=== PATIENT | female | born 1935 | race Caucasian/White ===

== ENCOUNTER 2019-05-23 13:42 | Observation (INO) ==
[2019-05-23 14:45] LABS: BASO# 0.02 X1000 (0.0-0.2); BASO% 0.5 % (0.0-0.8); EOS# 0.03 X1000 (0.0-0.7); EOS% 0.7 % (0.0-10.0); HEMATOCRIT 24.4 % (37.0-47.0); HEMOGLOBIN 7.9 g/dL (12.0-16.0); IMM GRAN# 0.01 X1000 (0.0-0.04); IMM GRAN% 0.2 % (0.0-0.5); LYMPH# 1.28 X1000 (1.2-3.4); LYMPH% 30.7 % (20.5-51.1); MCH 40.3 PG (27-31); MCHC 32.4 g/dL (33-37); MCV 124.5 FL (81-99); MONO# 0.34 X1000 (0.11-0.59); MONO% 8.2 % (1.7-9.3); MPV 9.8 FL (7.4-10.4); NEUT# 2.49 X1000 (1.4-6.5); NEUT% 59.7 % (42.2-75.2); PLT 210 X1000 (130-400); RBC 1.96 XMIL (4.2-5.4); RDW 17.1 % (11.5-14.5); WBC 4.17 X1000 (4.8-10.8)
[2019-05-23 15:15] LABS: AGAP 8; ALBUMIN 3.3 g/dL (3.5-5.0); ALKALINE PHOSPHATASE 58 U/L (32-104); BUN 12 mg/dL (8-22); CALCIUM 7.8 mg/dL (8.8-10.2); CHLORIDE 105 mmol/L (98-107); COSMO 281; CREATININE 0.5 mg/dL (0.5-0.9); ESTIMATED GFR > 60; GLUCOSE 128 mg/dL (70-104); GOT 15 U/L (10-30); GPT 18 U/L (10-36); POTASSIUM 3.8 mmol/L (3.5-5.1); SODIUM 140 mmol/L (136-145); TCO2 27 mmol/L (25-35); TOTAL PROTEIN 5.7 g/dL (6.3-8.3)
--- NOTE | 2019-05-23 15:16 | Diag Imaging Result Doc PS360 ---
EXAM: CHEST-PORTABLE - 05/23/2019 HISTORY: cough TECHNIQUE: Portable chest COMPARISON: 03/18/2011 FINDINGS: Allowing for the AP projection, heart size appears within normal limits. Inspiration is mildly shallow, with subsegmental atelectasis at the bilateral lung bases. There is apical scarring similar to prior, most prominent on the right. There are left lower lung calcified granulomas from old granulomatous disease. There is no dense consolidation, vascular congestion, pleural effusion, or pneumothorax identified. There is a right internal jugular central venous catheter with its tip at the right atrium. IMPRESSION: Mildly shallow inspiration, with subsegmental atelectasis at the bilateral lung bases. Apical scarring, most prominent on the right. No discrete pneumonia. Electronically signed by Adonis Merrill 05/23/2019 3:13 PM
[2019-05-23] MEDS ORDERED: NS 1,000 ML IV ONE (16:22)
[2019-05-23] MEDS ORDERED: ROCEPHIN IV ONE (16:24)
[2019-05-23] MEDS ORDERED: TYLENOL PO PRN (17:48)
[2019-05-23] MEDS ORDERED: ZOFRAN IV PRN (17:48)
[2019-05-23] MEDS ORDERED: NS 1,000 ML ONE (18:34)
[2019-05-23] MEDS: ZOSYN 3.375 GM in NS 50 ML IV SCH ×2 (18:55→23:52)
--- NOTE | 2019-05-23 19:46 | HISTORY AND PHYSICAL ---
CHIEF COMPLAINT: Cough, urinary infection. HISTORY OF PRESENT ILLNESS: Patient is an 83-year-old female who is essentially nonverbal. The entire history is per her daughter. The daughter notes that Ms. Heck may have some mild dementia. Notes that over the weekend, she started having a cough, congestion. She attempted to check her O2 saturation and noted that it was low, but then notes that it did not read well and her hands were cold. States that she had some confusion, hallucinations over the weekend which is unusual for her. Stated that it continued to worsen. She was able to contact Dr. Slater's office on Wednesday and felt to have a UTI. The urine was sent for culture. She was placed on Macrobid. Unfortunately, she continued to worsen. The home health nurse checked on her today and thought she may have crackles in her lungs, and therefore had asked that she go to the ER. ALLERGIES: Adhesive dyes and lidocaine. MEDICATIONS: We do not have an accurate up-to-date medication list. We will address this once the list is available. REVIEW OF SYSTEMS: Obtained from the daughter. Denies any fevers or chills. States that she does have frequent UTIs and sometimes becomes generally weak and confused with these UTIs. Notes that she does have some confusion at baseline. Denies any chest pains, shortness of breath, dyspnea on exertion. Denies any GI issues. Denies any swelling in her lower extremities. PAST MEDICAL HISTORY: Positive for leukemia. Does have a history of anemia, although the daughter notes that her most recent hemoglobin and hematocrit had been checked recently and were 9 and 10. FAMILY HISTORY: Noncontributory. SOCIAL HISTORY: She lives at home. She is cared for by a caregiver and her daughter. She does not smoke or drink. PHYSICAL EXAMINATION: VITAL SIGNS: Reviewed. Temperature 98 degrees, pulse 82, respiratory rate 16, BP 169/73. GENERAL: Patient is in no current respiratory distress. She is chronically frail in appearance. HEENT: Normocephalic. NECK: Supple. CARDIOVASCULAR: Regular rate. No murmurs. CHEST: Clear. No crackles. No wheezing. No rubs. Decreased breath sounds, but appears equal bilaterally. ABDOMEN: Soft, nondistended. EXTREMITIES: Moves all extremities. She has no edema. NEUROLOGIC: Unable to fully assess. The patient does not follow commands and does not speak for herself. ASSESSMENT: 1. Urinary tract infection. We will place her on antibiotics and we will await culture. We will attempt to get results from Dr. Slater's office tomorrow as his culture hopefully will be back tomorrow. 2. Anemia. Hemoglobin and hematocrit are 7.9 and 24. We will not transfuse her at the current time. However, if this continues to drop, we certainly may require a transfusion. 3. Dementia. 4. Hypertension. 5. Others. PLAN: As noted, we will place her on intravenous fluids, antibiotics. Will follow. Recheck her labs in the a.m. if her hemoglobin and hematocrit drop, probably we will transfuse. Will adjust her antibiotics according to culture results when they are available, and will adjust her home medications once available. cc: Miguel Wisodm MD
[2019-05-23] MEDS: LEVAQUIN 500 MG/D5W 500 MG/100 ML IVPB IV SCH (20:50)
[2019-05-24] MEDS: ZOSYN 3.375 GM in NS 50 ML IV SCH ×4 (05:20→23:39)
[2019-05-24 06:10] LABS: HEMATOCRIT 24.3 % (37.0-47.0); HEMOGLOBIN 7.8 g/dL (12.0-16.0); MCH 39.8 PG (27-31); MCHC 32.1 g/dL (33-37); MPV 9.9 FL (7.4-10.4); RBC 1.96 XMIL (4.2-5.4); RDW 16.8 % (11.5-14.5); WBC 4.66 X1000 (4.8-10.8)
[2019-05-24 06:13] LABS: BILIRUBIN URINE NEGATIVE (NEGATIVE); BLOOD URINE 1+ (NEGATIVE); GLUCOSE URINE NEGATIVE (NEGATIVE); KETONE URINE TRACE mg/dL (NEGATIVE); LEUKOCYTES URINE 1+ (NEGATIVE); NITRITE URINE NEGATIVE (NEGATIVE); PROTEIN URINE NEGATIVE (NEGATIVE); URINE SOURCE CATH; UROBILINOGEN URINE NORMAL
[2019-05-24 06:14] LABS: CLARITY CLEAR (CLEAR); COLOR YELLOW
[2019-05-24 06:25] LABS: AGAP 8; ALKALINE PHOSPHATASE 57 U/L (32-104); BUN 8 mg/dL (8-22); CALCIUM 7.6 mg/dL (8.8-10.2); CHLORIDE 108 mmol/L (98-107); COSMO 283; CREATININE 0.6 mg/dL (0.5-0.9); ESTIMATED GFR > 60; GLUCOSE 101 mg/dL (70-104); GOT 13 U/L (10-30); GPT 16 U/L (10-36); MAGNESIUM 1.9 mg/dL (1.5-2.7); POTASSIUM 3.5 mmol/L (3.5-5.1); SODIUM 143 mmol/L (136-145); TCO2 27 mmol/L (25-35); TOTAL PROTEIN 5.2 g/dL (6.3-8.3)
[2019-05-24 06:46] LABS: URINE BACTERIA 2+ /HFP; URINE CAST GRANULAR PRESENT /LPF; URINE EPITHELIAL CELLS <10 /HPF (<10)
--- NOTE | 2019-05-24 09:59 | PROVIDER DOCUMENTATION ---
This chart was entered by Annie Krause Scribe, acting as scribe for Oma Maier MD. HPI-General Adult - General Chief Complaint: Cough Stated Complaint: SOB Time Seen by Provider: 05/23/19 13:53 Source: patient, family Allergies/Adverse Reactions: Patient Allergies Allergy/AdvReac Type Severity Reaction Status Date / Time adhesive Allergy Intermediate RASH Verified 02/05/16 13:03 lidocaine [From Lidoderm] Allergy HIVES Verified 02/05/16 13:03 terbinafine HCl * Allergy ITCHING Verified 02/05/16 13:03 [From Lamisil] Home Medications: Home Medication List Medication Instructions Recorded Confirmed Last Taken Type Prednisone 5 mg PO BID 07/07/12 05/23/19 05/23/19 History Folic Acid 1 mg PO DAILY 10/09/12 05/23/19 05/23/19 History Methotrexate 5 mg PO DIRECTED 03/15/13 05/23/19 05/17/19 07:00 History Cetirizine HCl [Zyrtec] 10 mg PO QHS 05/23/19 05/23/19 Unknown History Cyanocobalamin (Vitamin B-12) 1,250 mcg PO DAILY 05/23/19 05/23/19 Unknown History [Vitamin B12] Docusate Sodium 100 mg PO BID 05/23/19 05/23/19 05/23/19 History Dronabinol [Marinol] 5 mg PO BID 05/23/19 05/23/19 05/23/19 History Hydrocodone/Chlorphen Polis 5 ml PO PRN PRN 05/23/19 05/23/19 Unknown History [Tussionex Liquid] Mv-Mn/Iron/FA/Herbal Cmplx#190 50 mcg PO DAILY 05/23/19 05/23/19 05/23/19 History [Vitamin D3 Complete Caplet] Nitrofurantoin Monohyd/M-Cryst 100 mg PO BID 05/23/19 05/23/19 05/23/19 History [Macrobid 100 mg Capsule] Sennosides/Docusate Sodium [Senna 1 ea PO PRN PRN 05/23/19 05/23/19 Unknown History Laxative Tablet] Tramadol HCl 50 mg PO QHS 05/23/19 05/23/19 05/22/19 History Tramadol [Ultram] 100 mg PO DAILY 05/23/19 05/23/19 05/23/19 History Venlafaxine HCl [Venlafaxine HCl 37.5 mg PO QHS 05/23/19 05/23/19 05/22/19 History ER] - History of Present Illness -Gen Adult Nature of Presenting Problems: 83 yowf presents to the ed with family. pt family speaks for pt and pt is nonverbal on exam. pt family sts pcp ran urine yesterday and pt has "significant UTI" and is on abx now. family has noted weakness and confusion more then baseline and sts home health came out this morning and was concerned of "fluid in her lungs" so pt was brought to ed. pt is nontoxic in appearance on exam Location of Pain/Injury: reports: generalized (weakness) Quality of Pain: reports: other (weakness) Severity: reports: mild Onset/Duration: reports: gradual Timing: reports: still present Context/Activities at Onset: reports: light activity Modifying Factors: improves with: nothing Associated Symptoms: reports: genitourinary problems (UTI but sts has had no sx) , weakness, trouble walking. denies: back/neck pain, chest pain, diarrhea, fever/chills, nausea, vomiting Similar Symptoms Previously?: Yes (UTI) Recently seen or treated by another doctor?: No (had urine sent yesterday to pcp) Review of Systems - Adult - REVIEW OF SYSTEMS - ADULT ROS:: ROS per family Constitutional: denies: chills, fever Eyes: reports: no symptoms reported Ears, Nose, Mouth & Throat: reports: no symptoms reported Cardiovascular: denies: chest pain, palpitations Respiratory: denies: shortness of breath, wheezing Gastrointestinal: denies: abdominal pain, diarrhea, nausea, vomiting Genitourinary: reports: see HPI, frequent UTI's Musculoskeletal: reports: see HPI, other (generalized weakness) Integumentary: reports: no symptoms reported Neurological: reports: see HPI, other (confusion). denies: dizziness/vertigo, headache/migraines, slurred speech, syncope, tremors Psychiatric: reports: no symptoms reported Endocrine: reports: no symptoms reported Hematologic/Lymphatic: reports: no symptoms reported Allergic/Immunologic: reports: no symptoms reported All Other Systems: Reviewed and Negative Past History - Adult - PAST MEDICAL HISTORY-ADULT Review of Records: reports: Old Records Reviewed, Nursing Assessment Review, Medications Reviewed, Social history reviewed & non-contributory. Major Childhood Illnesses: reports: denies history Cardiovascular: reports: denies history Respiratory: reports: denies history Gastrointestinal: reports: denies history Obstetrical/Gynecological: reports: denies history Genitourinary: reports: denies history Musculoskeletal: reports: denies history Hand Dominance: Right Handed Neurological: reports: denies history Psychiatric: reports: denies history Endocrine/Immune: reports: denies history Other Conditions: reports: other cancer (leukemia) - PRIOR SURGERIES/PROCEDURES Surgical/Procedure History: reports: reviewed, not pertinent - IMMUNIZATION STATUS Childhood Immunizations: See Nurse Assessment Flu Vaccine: See Nurse Assessment - FAMILY HISTORY Family History: reviewed, not pertinent - SOCIAL HISTORY Smoking: non-smoker Substance Use: none/never Living Situation: family Physical Exam-General - PHYSICAL EXAM-ADULT Initial Vital Signs Reviewed: Yes - CONSTITUTIONAL General Appearance: appears well, alert, no apparent distress - EYES Eyes: PERRL/EOMI, pink conjunctivae - HEAD, EARS, NOSE, MOUTH & THROAT HENMT: moist mucous membranes - NECK Neck: full range of motion, supple, normal inspection - RESPIRATORY Respiratory: chest non-tender, decreased breath sounds (on right). negative: crackles, rales, rhonchi, wheezing - CARDIOVASCULAR Cardiovascular: normal peripheral pulses, regular rate, rhythm - GASTROINTESTINAL (ABDOMEN) Abdominal Exam: normal bowel sounds, non tender, soft - GENITOURINARY Female Genitalia/Pelvic Exam: deferred Rectal Exam: deferred Hemoccult Exam: deferred - LYMPHATIC Lymphatic: no adenopathy - MUSCULOSKELETAL Back Exam: scoliosis Extremity: normal range of motion, no calf tenderness, normal capillary refill - SKIN Integumentary: normal color, normal turgor, warm/dry - PSYCHIATRIC Psych/Mental Status: other (pt does not speak on exam family speaks for her) Progress - PLAN OF CARE/RESULTS Progress/Plan/Lab Results: Vital Signs - 8 hr 05/23/19 13:45 Temperature 98 F Pulse Rate 82 Respiratory Rate 16 Blood Pressure 169/73 O2 Sat by Pulse Oximetry 95 Result Diagrams: 05/24/19 05:33 05/24/19 05:33 - REASSESSMENT Reassessment #1 Time Reassessed: 15:35 (pt is resting in bed) Status: unchanged - XRAY 1 XRAY: Bilateral XRAY Study: Chest Impression: See EMR Report (EXAM: CHEST-PORTABLE - 05/23/2019 HISTORY: cough TECHNIQUE: Portable chest COMPARISON: 03/18/2011 FINDINGS: Allowing for the AP projection, heart size appears within normal limits. Inspiration is mildly shallow, with subsegmental atelectasis at the bilateral lung bases. There is apical scarring similar to prior, most prominent on the right. There are left lower lung calcified granulomas from old granulomatous disease. There is no dense consolidation, vascular congestion, pleural effusion, or pneumothorax identified. There is a right internal jugular central venous catheter with its tip at the right atrium. IMPRESSION: Mildly shallow inspiration, with subsegmental atelectasis at the bilateral lung bases. Apical scarring, most prominent on the right. No discrete pneumonia. Electronically signed by Adonis Merrill 05/23/2019 3:13 PM 05/23/19 1513 Interpreting Physician: Adonis Merrill MD Dictated Date/Time: 05/23/19 1511 cc: Oma Maier MD; None,PCP) - CONSULTS/PCP/HOSPITALIST Notification #1 *Consult/PCP/Hospitalist*: hospitalist dr cardozo Consult Disposition: Admit Departure - Departure Date of Disposition Decision: 05/23/19 Time of Disposition Decision: 15:58 DIAGNOSIS: Generalized weakness UTI (urinary tract infection) Qualifiers: Urinary tract infection type: site unspecified Hematuria presence: with hematuria Qualified Code(s): N39.0 - Urinary tract infection, site not specified; R31.9 - Hematuria, unspecified Disposition: ADMITTED INPATIENT 09 Certified Medical Emergency: Emergent Condition: Stable - Critical Care Note This patient required my direct & personal management of CC.: No Attestation - Physician/ GLORIA Attestation Patient care was provided by Advanced Practice Provider:: No The physician spent face to face time with patient:: Yes Advanced Practice Provider documentation review:: Supervising physician onsite and consulted in the evaluation and care of this patient. The physician did have a face to face encounter with the patient. This chart was documented by the indicated scribe, (Annie Krause Scribe) and accurately reflects the services I performed and decisions made by me, Roma Maier i, MD, as attested by the provider's signature.
[2019-05-24] MEDS ORDERED: NS 1,000 ML ONE (15:01)
[2019-05-24] MEDS ORDERED: TUSSIONEX LIQUID PO PRN (17:30)
[2019-05-24] MEDS ORDERED: METHOTREXATE PO SCH (18:00)
--- NOTE | 2019-05-24 20:07 | PROGRESS NOTE ---
DATE: 05/24/2019 SUBJECTIVE: Patient's caregivers deny any new complaints. PHYSICAL EXAMINATION: Vital Signs: Reviewed. Temperature 97.6 degrees, pulse 77, respiratory rate 18, BP 152/70. General: Patient is awake, alert. She is in no current distress. HEENT: Normocephalic. Neck: Supple. Cardiovascular: Regular rate. No murmurs. Chest: Clear, nonlabored. Abdomen: Soft, nondistended. Extremities: Moves all extremities. ASSESSMENT: 1. Urinary tract infection. Culture is still pending. We were unable to obtain the final results from Dr. Slater's office. We will attempt to do this again in the a.m. 2. Anemia. Hemoglobin and hematocrit have remained stable at 7.9 and 24. 3. Dementia. 4. Hypertension. PLAN: We will continue patient in the hospital. Continue to follow. Once we get final culture results, we hopefully can discharge home. cc: Miguel Wisdom MD
[2019-05-24] MEDS ORDERED: MARINOL PO SCH (21:00)
[2019-05-24] MEDS ORDERED: MACROBID PO SCH (21:00)
[2019-05-24] MEDS ORDERED: EFFEXOR XR PO SCH (21:00)
[2019-05-24] MEDS ORDERED: ULTRAM PO SCH (21:00)
[2019-05-24] MEDS ORDERED: ZYRTEC PO SCH (21:00)
[2019-05-24] MEDS ORDERED: PREDNISONE PO SCH (21:00)
[2019-05-24] MEDS ORDERED: COLACE PO SCH (21:00)
[2019-05-24] MEDS: LEVAQUIN 500 MG/D5W 500 MG/100 ML IVPB IV SCH (21:52)
[2019-05-25 05:04] VITALS: BP 160/69
[2019-05-25] MEDS: ZOSYN 3.375 GM in NS 50 ML IV SCH (05:42)
[2019-05-25] MEDS ORDERED: TUSSIONEX LIQUID PO PRN (06:30)
[2019-05-25] MEDS ORDERED: FOLIC ACID PO SCH (09:00)
[2019-05-25] MEDS ORDERED: VITAMIN D PO SCH (09:00)
[2019-05-25] MEDS ORDERED: ULTRAM PO SCH (09:00)
[2019-05-25] MEDS ORDERED: VITAMIN B-12 PO SCH (09:00)
[2019-05-25] MEDS ORDERED: LEVAQUIN PO SCH (21:00)
--- NOTE | 2019-05-25 22:03 | DISCHARGE SUMMARY ---
ADMISSION DATE: 05/23/2019 DISCHARGE DATE: 05/25/2019 DIAGNOSES: 1. Urinary tract infection. 2. Anemia with hemoglobin and hematocrit stable at 7.9 and 24. 3. Dementia. 4. Hypertension. DIAGNOSTICS: Chest x-ray revealed mildly shallow inspiration with subsegmental atelectasis at the bilateral lung bases. No discrete pneumonia. MICROBIOLOGY: 1. Urine culture 05/24/2019 revealed no growth. 2. Urine culture 05/23/[address] Torres's office revealed mixed georgiana. HOSPITAL COURSE: Ms. Heck presented to the emergency room with cough and a urinary tract infection. Evidently, on Wednesday she contacted Dr. Torres's office due to her having intermittent confusion and hallucinations over the weekend, which was not common for her. They felt that she might have a UTI. They sent a urine for culture and placed her on Macrobid. As symptoms continued to worsen, she presented to the emergency room and was found to have crackles. She was admitted and received IV hydration as well as Rocephin and Zosyn for antibiotic coverage. Urine culture came back no growth from admission to the hospital. She was changed to Levaquin p.o. Urine culture from Dr. Torres's office from the came back on the more incubation required. It did result this morning at 8:30 with mixed georgiana. Caregivers are at the bedside. They state that she is back to her normal state with no new complaints. DISCHARGE VITAL SIGNS: Blood pressure is 160/60 with a heart rate of 80, respirations 16, temperature is 97.7 degrees with room air saturations 95%. DISCHARGE PHYSICAL EXAMINATION: Cardiovascular: Regular rate and rhythm. S1, S2 appreciated. Pulmonary: Breath sounds are clear with no increased work of breathing noted. Gastrointestinal: Abdomen is soft, nontender, nondistended with bowel sounds in all 4 quadrants. Neurologic: The patient is awake and alert. DISCHARGE MEDICATIONS: 1. Levaquin 500 mg p.o. daily x5 days. 2. Vitamin B12, 2500 mcg daily. 3. Ultram 100 mg p.o. daily. 4. Methotrexate as directed. 5. Folic acid 1 mg p.o. daily. 6. Marinol 5 mg p.o. b.i.d. 7. Docusate sodium 100 mg p.o. b.i.d. 8. Zyrtec 10 mg p.o. at bedtime. 9. Senna laxative 1 p.o. p.r.n. constipation. 10. Effexor 37.5 at bedtime. DISCHARGE INSTRUCTIONS: With Dr. Ted Greenwood. They need to schedule an appointment in the next 1 to 2 weeks. The patient is being discharged home in stable condition with family members. They have been instructed to call Dr. Greenwood to be seen sooner or return to the ER for any syncope, dizziness, chest pain, palpitations, shortness of breath, increased cough, fever, chills, temperature greater than 101; any nausea, vomiting, diarrhea, constipation; black or bloody vomitus or stools; any hematuria, dysuria, frequency, urgency; change in mental status or for any questions or concerns that they may have. Dictated by WILLI Malhotra for Miguel Wisdom MD cc: WILLI Malhotra MD [facility]
--- NOTE | 2019-05-26 02:52 | DISCHARGE SUMMARY ---
ADMISSION DATE: 05/23/2019 DISCHARGE DATE: 05/25/2019 ADDENDUM: Patient seen and examined by myself. Full note dictated and discussed with nurse practitioner. On discharge, the patient has anemia but her hemoglobin and hematocrit have remained stable at 7 and 24. Her urine culture thus far has been negative. She does feel better since starting Levaquin. Therefore, we will continue this for 5 days at home. She will follow up outpatient with her primary care. cc: Miguel Wisdom MD
== END 2019-05-25 10:45 | disposition home health service (06) ==
LOC: P.ED 13:42 → P.MEDSURG 13:42
PROVIDERS: ATTEND Family Medicine
CPT/HCPCS: 71010; 71045; 80053; 81001; 83735; 83880; 84443; 85025; 85027; 87088; A9270; J0696; J1956; J2543; J7030; J7506; J7512; J8610

== ENCOUNTER 2019-06-08 10:37 | Inpatient (IN) ==
[2019-06-08] MEDS ORDERED: ZOSYN 3.375 GM in NS 50 ML IV ONE (10:59)
[2019-06-08] MEDS ORDERED: NS 1,000 ML IV ONE (10:59)
[2019-06-08] MEDS ORDERED: NS 500 ML IV ONE (10:59)
[2019-06-08] MEDS ORDERED: VANCOMYCIN 1 GM/NS 1 GM/250 ML IVPB IV ONE (10:59)
[2019-06-08] MEDS ORDERED: NS 250 ML IV ONE (10:59)
[2019-06-08] MEDS ORDERED: OFIRMEV 1000 MG/ISOTONIC SOLN 1,000 MG/100 ML BOTTLE IV ONE (11:01)
[2019-06-08 11:36] LABS: ALLEN TEST YES; BE 9.4 mmoll (-3.0-3.0); BLOOD TYPE ARTERIAL; HCO3-(ACT) 32.3 mmoll (20.0-26.0); METHB 0.8 % (0.0-1.5); O2HB 96.6 % (95.0-99.0); PCO2(98.6) 31 mmHg (35-45); PO2(98.6) 174 mmHg (60-100); SAMPLE BLOOD; SAO2 99.4 % (95.0-100.0)
[2019-06-08 11:39] LABS: MODALITY CANNULA; pH(98.6) 7.61 (7.35-7.45)
[2019-06-08 11:51] LABS: URINE SOURCE CATH
[2019-06-08 12:00] LABS: BILIRUBIN URINE NEGATIVE (NEGATIVE); BLOOD URINE TRACE (NEGATIVE); COLOR YELLOW; GLUCOSE URINE NEGATIVE (NEGATIVE); KETONE URINE NEGATIVE (NEGATIVE); LEUKOCYTES URINE LARGE (NEGATIVE); NITRITE URINE NEGATIVE (NEGATIVE); PH URINE 6.5; PROTEIN URINE TRACE mg/dL (NEGATIVE); SP GRAVITY URINE 1.013; TURBIDITY URINE CLEAR (CLEAR); UROBILINOGEN URINE NORMAL (NORMAL)
[2019-06-08 12:02] LABS: UR EPITHELIAL CELLS <10 /HPF (<10); URINE BACTERIA NEGATIVE /HPF; URINE RBC <10 /HPF (<10); URINE WBC TNTC /HPF (<10)
[2019-06-08 12:05] LABS: INR 1.3; PROTIME 16.4 Seconds (11.0-16.0)
--- NOTE | 2019-06-08 12:13 | Diag Imaging Result Doc PS360 ---
EXAM: CHEST-1 VIEW HISTORY: fever, ams TECHNIQUE: Chest single view 05/23/2019 COMPARISON: None. FINDINGS: The lungs are well expanded. Heart is mildly prominent. No pulmonary edema. No pleural effusions identified. No change in the right sided portacatheter. No pneumothorax. Increased markings in the mid right lung may be scarring. Left granuloma. IMPRESSION: Stable chest Electronically signed by Davion Banks 06/08/2019 12:11 PM
[2019-06-08 12:15] LABS: BASO# 0.02 X1000 (0.0-0.2); BASO% 0.1 % (0.0-0.8); HEMATOCRIT 29.3 % (37.0-47.0); HEMOGLOBIN 9.9 g/dL (12.0-16.0); LYMPH# 1.55 X1000 (1.2-3.4); LYMPH% 11.6 % (20.5-51.1); MCH 35.9 PG (27-31); MCHC 33.8 g/dL (33-37); MCV 106.2 FL (81-99); MONO# 0.95 X1000 (0.11-0.59); MONO% 7.1 % (1.7-9.3); MPV 9.7 FL (7.4-10.4); NEUT# 10.85 X1000 (1.4-6.5); NEUT% 81.2 % (42.2-75.2); PLT 175 X1000 (130-400); RBC 2.76 XMIL (4.2-5.4); WBC 13.37 X1000 (4.8-10.8)
[2019-06-08 12:17] LABS: AGAP 8; ALB/GLOB RATIO 1.8; ALBUMIN 3.2 g/dL (3.5-5.0); ALKALINE PHOSPHATASE 54 U/L (32-104); BUN 11 mg/dL (8-22); CALCIUM 7.9 mg/dL (8.8-10.2); CHLORIDE 103 mmol/L (98-107); CK PROFILE 10 U/L (24-173); COSMO 282; CREATININE 0.5 mg/dL (0.5-0.9); ESTIMATED GFR > 60; GLUCOSE 124 mg/dL (70-104); GOT 15 U/L (10-30); GPT 29 U/L (10-36); MAGNESIUM 1.7 mg/dL (1.5-2.7); POTASSIUM 2.8 mmol/L (3.5-5.1); SODIUM 141 mmol/L (136-145); TCO2 30 mmol/L (25-35); TOTAL BILIRUBIN 0.81 mg/dL (0.20-1.00)
[2019-06-08 12:22] LABS: BANDS 2 % (0-1); LYMPHS 14 % (21-51); MONO 8 % (1-9); SEGS 76 % (42-75)
--- NOTE | 2019-06-08 13:03 | PROVIDER DOCUMENTATION ---
This chart was entered by Mercy Avendano Scribe, acting as scribe for Jerry Lomax MD. HPI-Fever - General Chief Complaint: SEPSIS ALERT - D Stated Complaint: n/v/d Time Seen by Provider: 06/08/19 10:55 Source: patient, family, EMS Allergies/Adverse Reactions: Patient Allergies Allergy/AdvReac Type Severity Reaction Status Date / Time adhesive Allergy Intermediate RASH Verified 06/08/19 12:02 lidocaine [From Lidoderm] Allergy HIVES Verified 06/08/19 12:02 terbinafine HCl * Allergy ITCHING Verified 06/08/19 12:02 [From Lamisil] Home Medications: Home Medication List Medication Instructions Recorded Confirmed Last Taken Type Prednisone 5 mg PO BID 07/07/12 06/06/19 05/23/19 History Folic Acid 1 mg PO DAILY 10/09/12 06/06/19 05/23/19 History Cetirizine HCl [Zyrtec] 10 mg PO QHS 05/23/19 06/06/19 Unknown History Cyanocobalamin (Vitamin B-12) 1,250 mcg PO DAILY 05/23/19 06/06/19 Unknown History [Vitamin B12] Docusate Sodium 100 mg PO BID 05/23/19 06/06/19 05/23/19 History Dronabinol [Marinol] 5 mg PO BID 05/23/19 06/06/19 05/23/19 History Hydrocodone/Chlorphen Polis 5 ml PO PRN PRN 05/23/19 06/06/19 Unknown History [Tussionex Liquid] Mv-Mn/Iron/FA/Herbal Cmplx#190 50 mcg PO DAILY 05/23/19 06/06/19 05/23/19 History [Vitamin D3 Complete Caplet] Sennosides/Docusate Sodium [Senna 1 ea PO PRN PRN 05/23/19 06/06/19 Unknown History Laxative Tablet] Tramadol HCl 50 mg PO QHS 05/23/19 06/06/19 05/22/19 History Tramadol [Ultram] 100 mg PO DAILY 05/23/19 06/06/19 05/23/19 History Venlafaxine HCl [Venlafaxine HCl 37.5 mg PO QHS 05/23/19 06/06/19 05/22/19 History ER] Fluconazole [Diflucan] 150 mg PO DIRECTED 06/06/19 06/06/19 Unknown History - History of Present Illness-Fever Nature of Presenting Problem: 83 y/o female presents to ED with N/V/D, AMS, and fever onset this morning. Pt has hx leukemia and sees Dr. Torres. Daughter of pt is at bedside and reports she was admitted at [facility] 2 weeks ago for UTI and completed 2 rounds of antibiotics. Pt was admitted again 2 days ago and had a blood transfusion before being discharged yesterday afternoon. Daughter states she had a temp of 102 at home. Pt was put on home O2 last week. Daughter reports pt is not as alert and she normally is today. Pt denies any pain. Fever Severity/Quality: reports: greater than 100.5 F Onset/Duration: reports: this morning Timing: reports: still present Severity: reports: moderate Context: reports: decreased mental status Recent Illness?: reports: UTI Fever Therapy PAY PER CLICK STRATEGIST: Initiated none Cognitive Baseline: other (alert, answers questions, follows commands, lethargic) Modifying Factors: improves with: nothing Associated Symptoms: reports: diarrhea, fever/chills, nausea, vomiting, other (AMS) Similar Symptoms Previously?: No Recently seen or treated by another doctor?: Yes Review of Systems - Adult - REVIEW OF SYSTEMS - ADULT Constitutional: reports: fever, other (AMS). denies: chills Eyes: reports: no symptoms reported Ears, Nose, Mouth & Throat: reports: no symptoms reported Cardiovascular: denies: chest pain, palpitations Respiratory: denies: cough Gastrointestinal: reports: diarrhea, nausea, vomiting. denies: abdominal pain Genitourinary: reports: no symptoms reported Musculoskeletal: denies: back pain, joint pain Integumentary: reports: no symptoms reported Neurological: reports: other (AMS). denies: dizziness/vertigo, seizure Psychiatric: reports: no symptoms reported Endocrine: reports: no symptoms reported Hematologic/Lymphatic: reports: no symptoms reported Allergic/Immunologic: reports: no symptoms reported All Other Systems: Reviewed and Negative Past History - Adult - PAST MEDICAL HISTORY-ADULT Review of Records: reports: Old Records Reviewed, Nursing Assessment Review, Medications Reviewed Major Childhood Illnesses: reports: denies history Cardiovascular: reports: HTN Gastrointestinal: reports: GERD Neurological: reports: dementia Endocrine/Immune: reports: Leukemia - PRIOR SURGERIES/PROCEDURES Surgical/Procedure History: reports: hysterectomy - IMMUNIZATION STATUS Childhood Immunizations: See Nurse Assessment Flu Vaccine: See Nurse Assessment - FAMILY HISTORY Family History: reviewed, not pertinent - SOCIAL HISTORY Smoking: non-smoker Substance Use: none/never Alcohol Use Frequency: never Living Situation: family Physical Exam-General - PHYSICAL EXAM-ADULT Initial Vital Signs Reviewed: Yes - CONSTITUTIONAL General Appearance: alert, no apparent distress, other (alert, answers questions, follows commands, lethargic) - EYES Eyes: PERRL/EOMI, pink conjunctivae - HEAD, EARS, NOSE, MOUTH & THROAT HENMT: negative: moist mucous membranes (dry and chapped) - RESPIRATORY Respiratory: chest non-tender, lungs clear, normal breath sounds - CARDIOVASCULAR Cardiovascular: normal peripheral pulses, regular rate, rhythm - GASTROINTESTINAL (ABDOMEN) Abdominal Exam: non tender, soft, abnormal bowel sounds (hyperactive). negative: normal bowel sounds - MUSCULOSKELETAL Back Exam: normal inspection Extremity: normal range of motion - SKIN Integumentary: normal color, warm, other (port to R upper anterior chest) - NEUROLOGIC Neurologic: other (alert, answers questions, follows commands, lethargic) - PSYCHIATRIC Psych/Mental Status: normal mood/affect, other (alert, answers questions, follows commands, lethargic) Progress - PLAN OF CARE/RESULTS Progress/Plan/Lab Results: Vital Signs - 8 hr 06/08/19 10:43 Temperature 102.1 F H Pulse Rate 95 H Respiratory Rate 20 Blood Pressure 147/70 O2 Sat by Pulse Oximetry 90 L 06/08/19 11:15 Clostridioides difficile Toxin Assay - Final Stool 06/08/19 11:15 Stool Occult Blood (SILVIA) - Final Stool Laboratory Results - last 24 hr 06/08/19 06/08/19 06/08/19 11:18 11:25 11:28 WBC RBC Hgb Hct MCV MCH MCHC RDW Std Deviation Plt Count MPV Neut % (Auto) Lymph % (Auto) [place] % (Auto) Eos % (Auto) Baso % (Auto) Neut # (Auto) Lymph # (Auto) [place] # (Auto) Eos # (Auto) Baso # (Auto) Segmented Neutrophils Band Neutrophils Lymphocytes Monocytes PT INR PTT (Actin FS) Specimen Type ARTERIAL Sample Site L RADIAL pH 7.61 H* pCO2 31 L pO2 174 H HCO3 32.3 H Base Excess 9.4 H Oxyhemoglobin 96.6 ABG O2 Sat (Calculated) 14.0 L ABG O2 Saturation 99.4 ABG Carboxyhemoglobin 2.00 ABG Methemoglobin 0.8 Arian Test YES A-a O2 Difference -13.0 Total Hemoglobin 10.0 L Lactate 1.20 Liter Flow 2.0 Blood Gas Modality CANNULA FiO2 % 28.0 Sodium Potassium Chloride Carbon Dioxide Anion Gap BUN Creatinine Estimated GFR/1.73 m2 BUN/Creatinine Ratio Glucose Calculated Osmolality Calcium Magnesium Total Bilirubin AST ALT Alkaline Phosphatase Creatine Kinase Troponin T Total Protein Albumin Globulin Albumin/Globulin Ratio Plasma Lactate 1.0 Urine Source CATH Urine Color YELLOW Urine Turbidity CLEAR Urine pH 6.5 Ur Specific [place] 1.013 Urine Protein TRACE A Ur Glucose (Stick) NEGATIVE Ur Ketones (Stick) NEGATIVE Urine Blood TRACE A Urine Nitrite NEGATIVE Urine Bilirubin NEGATIVE Urobilinogen Dipstick NORMAL Urine Leukocytes LARGE A Urine WBC (Auto) TNTC A Urine RBC (Auto) <10 U Epithel Cells (Auto) <10 Urine Bacteria (Auto) NEGATIVE 06/08/19 06/08/19 06/08/19 11:37 11:37 11:37 WBC 13.37 H D RBC 2.76 L Hgb 9.9 L Hct 29.3 L MCV 106.2 H MCH 35.9 H MCHC 33.8 RDW Std Deviation Not Reportable Plt Count 175 MPV 9.7 Neut % (Auto) 81.2 H Lymph % (Auto) 11.6 L [place] % (Auto) 7.1 Eos % (Auto) 0.0 Baso % (Auto) 0.1 Neut # (Auto) 10.85 H Lymph # (Auto) 1.55 [place] # (Auto) 0.95 H Eos # (Auto) 0.00 Baso # (Auto) 0.02 Segmented Neutrophils 76 H Band Neutrophils 2 H Lymphocytes 14 L Monocytes 8 PT 16.4 H INR 1.30 PTT (Actin FS) 27.0 Specimen Type Sample Site pH pCO2 pO2 HCO3 Base Excess Oxyhemoglobin ABG O2 Sat (Calculated) ABG O2 Saturation ABG Carboxyhemoglobin ABG Methemoglobin Arian Test A-a O2 Difference Total Hemoglobin Lactate Liter Flow Blood Gas Modality FiO2 % Sodium 141 Potassium 2.8 L Chloride 103 Carbon Dioxide 30 Anion Gap 8 BUN 11 Creatinine 0.5 Estimated GFR/1.73 m2 > 60 BUN/Creatinine Ratio 22 Glucose 124 H Calculated Osmolality 282 Calcium 7.9 L Magnesium 1.7 Total Bilirubin 0.81 AST 15 ALT 29 Alkaline Phosphatase 54 Creatine Kinase 10 L Troponin T Total Protein 5.0 L Albumin 3.2 L Globulin 1.8 Albumin/Globulin Ratio 1.8 Plasma Lactate Urine Source Urine Color Urine Turbidity Urine pH Ur Specific [place] Urine Protein Ur Glucose (Stick) Ur Ketones (Stick) Urine Blood Urine Nitrite Urine Bilirubin Urobilinogen Dipstick Urine Leukocytes Urine WBC (Auto) Urine RBC (Auto) U Epithel Cells (Auto) Urine Bacteria (Auto) 06/08/19 11:37 WBC RBC Hgb Hct MCV MCH MCHC RDW Std Deviation Plt Count MPV Neut % (Auto) Lymph % (Auto) [place] % (Auto) Eos % (Auto) Baso % (Auto) Neut # (Auto) Lymph # (Auto) [place] # (Auto) Eos # (Auto) Baso # (Auto) Segmented Neutrophils Band Neutrophils Lymphocytes Monocytes PT INR PTT (Actin FS) Specimen Type Sample Site pH pCO2 pO2 HCO3 Base Excess Oxyhemoglobin ABG O2 Sat (Calculated) ABG O2 Saturation ABG Carboxyhemoglobin ABG Methemoglobin Arian Test A-a O2 Difference Total Hemoglobin Lactate Liter Flow Blood Gas Modality FiO2 % Sodium Potassium Chloride Carbon Dioxide Anion Gap BUN Creatinine Estimated GFR/1.73 m2 BUN/Creatinine Ratio Glucose Calculated Osmolality Calcium Magnesium Total Bilirubin AST ALT Alkaline Phosphatase Creatine Kinase Troponin T < 0.010 Total Protein Albumin Globulin Albumin/Globulin Ratio Plasma Lactate Urine Source Urine Color Urine Turbidity Urine pH Ur Specific [place] Urine Protein Ur Glucose (Stick) Ur Ketones (Stick) Urine Blood Urine Nitrite Urine Bilirubin Urobilinogen Dipstick Urine Leukocytes Urine WBC (Auto) Urine RBC (Auto) U Epithel Cells (Auto) Urine Bacteria (Auto) Orders Category Date Time Status Cardiac Monitoring DIRECTED Care 06/08/19 10:56 Active [facility] Insertion ORDERED Care 06/08/19 11:01 Active IV Insertion ORDERED Care 06/08/19 10:56 Completed Notify Physician As Ordered Care 06/08/19 10:56 Active OK to use Port-A-Cath ORDERED Care 06/08/19 11:02 Active CHEST-1 VIEW [RAD] Stat Exams 06/08/19 10:56 Completed ABG [RESP] Routine Lab 06/08/19 11:28 Completed BLOOD CULTURE [BLDCUL] Stat Lab 06/08/19 11:18 Results C DIFF TOXIN [STOOL] Stat Lab 06/08/19 11:15 Completed CBC WITH DIFF [HEME] Stat Lab 06/08/19 11:37 Completed CK PROFILE [SP CHEM] Stat Lab 06/08/19 11:37 Completed COMPREHENSIVE METABOLIC PANEL [CHEM] Stat Lab 06/08/19 11:37 Completed LACTATE, PLASMA [CHEM] Lab 06/08/19 11:18 Completed LACTATE, PLASMA [CHEM] Lab 06/08/19 14:00 Uncollected LACTATE, PLASMA [CHEM] Lab 06/08/19 17:00 Uncollected MAGNESIUM [CHEM] Stat Lab 06/08/19 11:37 Completed OCCULT BLOOD SCREENING [STOOL] Stat Lab 06/08/19 11:15 Completed PROTIME WITH INR [COAG] Stat Lab 06/08/19 11:37 Completed PTT [COAG] Stat Lab 06/08/19 11:37 Completed STOOL CULTURE [RM] Routine Lab 06/08/19 11:15 Received TROPONIN T Stat Lab 06/08/19 11:37 Completed URINALYSIS W/POSS RFLX CULT [URINALYSIS] Stat Lab 06/08/19 11:25 Completed URINE CULTURE [RM] Routine Lab 06/08/19 12:04 Received 0.9% Sodium Chloride Inj [Ns] 1,000 ml Med 06/08/19 10:59 Discontinued IV 999 mls/hr 0.9% Sodium Chloride Inj [Ns] 250 ml Med 06/08/19 10:59 Discontinued IV 999 mls/hr 0.9% Sodium Chloride Inj [Ns] 500 ml Med 06/08/19 10:59 Discontinued IV 999 mls/hr Acetaminophen [Ofirmev 1000 mg/Isotonic Soln] Med 06/08/19 11:01 Discontinued 1,000 mg in 100 ml IV ONCE Heparin Flush Med 06/08/19 11:33 Discontinued 500 unit .ROUTE .STK-MED ONE Heparin Flush Med 06/08/19 11:55 Discontinued 500 unit INJ NOW ONE Piperacillin/Tazobactam [Zosyn] 3.375 gm Med 06/08/19 10:59 Discontinued 0.9% Sodium Chloride Inj [Ns] 50 ml IV NOW Potassium Chloride 20 Meq/Swi Med 06/08/19 13:00 Active 20 meq in 100 ml IV Q4H Vancomycin 1 gm/Ns Med 06/08/19 10:59 Discontinued 1 gm in 250 ml IV NOW Oxygen Device Stat Oth 06/08/19 10:56 Completed Stool Occult Blood is negative. C. Diff is positive. Result Diagrams: 06/08/19 11:37 06/08/19 11:37 - REASSESSMENT Reassessment #1 Time Reassessed: 12:39 Status: improving (somewhat more alert after IVF bolus. Given IV acetaminophen for fever. Given IV Vanc/Zosyn for GI source of sepsis and UTI. Given IV KCl for hypokalemia. Placed in contact isolation for c. diff. Family informed of patient's diagnoses and home clean up tips.) Reassessment Comment: Patient has sepsis, not severe sepsis. - XRAY 1 XRAY Study: Chest Impression: See EMR Report ([facility] - [address] [facility] [place], [address], [place] [address] [facility] - [address] [place] [address] Department of Imaging Patient: [facility] Date: 06/08/19#: [id number] : 6ADM Status: [facility]#: [id number] Age/Sex: 83/FRoom/Bed: Loc: ED Ordering Physician: Jerry Lomax MD Family Physician: None,PCP Reason for Procedure: fever, ams ___ Signed EXAM: CHEST-1 VIEW HISTORY: fever, ams TECHNIQUE: Chest single view 05/23/2019 COMPARISON: None. FINDINGS: The lungs are well expanded. Heart is mildly prominent. No pulmonary edema. No pleural effusions identified. No change in the right sided portacatheter. No pneumothorax. Increased markings in the mid right lung may be scarring. Left granuloma. IMPRESSION: Stable chest Electronically signed by Davion Banks 06/08/2019 12:11 PM 06/08/19 1211 Interpreting Physician: Davion Banks MD Dictated Date/Time: 06/08/19 1210 cc: Jerry Lomax MD; None,PCP) - CONSULTS/PCP/HOSPITALIST Notification #1 *Consult/PCP/Hospitalist*: Hemant paged at 1230 Time Discussed: 13:18 (WILLI Nicole called, admit hospitalist) Consult Disposition: other #2 Consult: WILLI Stahl, hospitalist paged at 1318 Time Discussed: 13:22 Consult Disposition: Will see in ED, Admit (Desai) Departure - Departure Date of Disposition Decision: 06/08/19 Time of Disposition Decision: 12:41 DIAGNOSIS: C. difficile enteritis, Complicated UTI (urinary tract infection), Acute hypokalemia Sepsis Qualifiers: Sepsis type: sepsis due to unspecified organism Sepsis acute organ dysfunction status: with acute organ dysfunction Severe sepsis acute organ dysfunction type: encephalopathy Severe sepsis shock status: without septic shock Qualified Code(s): A41.9 - Sepsis, unspecified organism; R65.20 - Severe sepsis without septic shock; G93.40 - Encephalopathy, unspecified Anemia Qualifiers: Anemia type: other cause Other causes of anemia: chronic disease, neoplastic Qualified Code(s): D63.0 - Anemia in neoplastic disease Disposition: ADMITTED INPATIENT 09 Certified Medical Emergency: Emergent Condition: Poor Referrals and Follow-Ups: None,PCP [Primary Care Provider] - - Critical Care Note This patient required my direct & personal management of CC.: Yes Total Time (mins): 40 Critical Care Statement: This patient required my direct personal management to treat or rule out processes, the absence of which, could potentiallly result in sudden, clinically significant life or limb threatening deterioration. Attestation - Physician/ GLORIA Attestation Patient care was provided by Advanced Practice Provider:: No The physician spent face to face time with patient:: Yes Advanced Practice Provider documentation review:: Supervising physician onsite and consulted in the evaluation and care of this patient. The physician did have a face to face encounter with the patient. This chart was documented by the indicated scribe, (Mercy Avendano Scribe) and accurately reflects the services I performed and decisions made by me, Jerry Lomax MD, as attested by the provider's signature.
[2019-06-08] MEDS: POTASSIUM CHLORIDE 20 MEQ/SWI 20 MEQ/100 ML IVPB IV SCH ×2 (13:17→17:56)
[2019-06-08] MEDS ORDERED: ZOFRAN IV PRN (13:35)
[2019-06-08] MEDS ORDERED: NS 1,000 ML IV SCH ×2 (14:45→19:30)
[2019-06-08] MEDS: VANCOCIN PO SCH ×2 (14:48→21:19)
[2019-06-08] MEDS: CULTURELLE PO SCH ×2 (14:48→21:18)
[2019-06-08] MEDS: DIFLUCAN 100 MG/NS 100 MG/50 ML IVPB IV SCH (16:14)
[2019-06-08] MEDS ORDERED: NS 250 ML ONE (16:18)
--- NOTE | 2019-06-08 17:56 | HISTORY AND PHYSICAL ---
CHIEF COMPLAINT: Generalized weakness, nausea, vomiting, diarrhea. HISTORY OF PRESENT ILLNESS: This is an 83-year-old female with a history of CLL, chronic anemia, who presents to the emergency room with her daughter, complaining of vomiting and diarrhea that started this morning. Shortly after symptoms started, she was found to have a temperature of 102 degrees. The daughter states the patient was admitted for a 23-hour observation from the to , being discharged on the in the morning. She did state that the patient ate well for breakfast and lunch, although her tip tester stated that she did not eat well last night for supper, but she had no specific complaints. She was found to be Clostridium difficile toxin positive in the emergency room. She is being admitted for further evaluation and treatment. Ms. Heck was hospitalized at [facility] from May 23 to May 25 for altered mental status and a presumed urinary tract infection. She had had a culture obtained at Dr. Torres's office on the . Culture was also sent on the . Both of these returned no growth, but in talking with the daughter, the patient had had antibiotics prior to this and been told that she had a urinary tract infection. Because cultures were done with the patient already on antibiotics, we did send her home on 5 days of Levaquin. The daughter stated that her urinary tract symptoms cleared, and the patient stated that she was feeling better until this morning. PAST MEDICAL HISTORY: 1. CLL. 2. Anemia. SOCIAL HISTORY: She lives at home. She is cared for by her caregiver and her daughter. She does not smoke or drink. ALLERGIES: Adhesive, dyes, and lidocaine. HOME MEDICATIONS: A list will be obtained by the nursing staff, and once verified, we will review and restart as appropriate. REVIEW OF SYSTEMS: Discussed with the daughter as the patient is lethargic at present and she is sleeping. She has not complained of any syncope or dizziness, any chest pain, palpitations, shortness of breath, cough, any chills, any nausea, vomiting, diarrhea, or constipation prior to June 07, any hematuria, dysuria, frequency, urgency. PHYSICAL EXAMINATION: GENERAL: This is an 83-year-old female, who is lying on the stretcher in the emergency room, in no distress. VITAL SIGNS: Blood pressure is 140/74 with a heart rate of 93, respirations are 18, O2 saturation are 92% to 94% on room air, temperature was 102 degrees on arrival to the emergency room and has not been rechecked. HEENT: Head is normocephalic, atraumatic. Mucous membranes are dry. NECK: Supple with trachea midline. CARDIOVASCULAR: Regular rate and rhythm. S1 and S2 appreciated. She has no murmur. EXTREMITIES: No lower extremity edema with peripheral pulses palpable x4 extremities. PULMONARY: Breath sounds are clear. No increased work of breathing noted. Chest rises and falls symmetric to respiration. GASTROINTESTINAL: The abdomen is soft, nondistended, with bowel hyperactive bowel sounds in all 4 quadrants. SKIN: Warm and dry. DIAGNOSTIC STUDIES: WBC 13, hemoglobin 9.9, hematocrit 29.3, and platelets 175,000. Sodium 141, potassium 2.8, BUN 11, creatinine 0.5, glucose 124. Urinalysis reveals large leukocytes with too- [id number] white blood cells, she is nitrite negative. Blood cultures, urine culture, and stool culture pending. Stool for occult blood is negative. Stool for C. difficile toxin is positive. Chest x-ray was stable chest. Lungs are well expanded. Heart is mildly prominent. No pulmonary edema. No pleural effusions. No change in right-sided Port-A-Cath. No pneumothorax. Increased markings in the right lung may be scarring. ASSESSMENT AND PLAN: 1. Clostridium difficile toxin. 2. Nausea, vomiting, and diarrhea secondary to above. 3. Hypokalemia. 4. Leukocytosis. 5. Possible urinary tract infection. 6. Chronic lymphocytic leukemia. 7. Chronic anemia. 8. Deep vein thrombosis and gastrointestinal prophylaxes. PLAN: The patient will be admitted to the medical floor. She will be placed in a private room on C. difficile isolation. We will continue with IV hydration. Start vancomycin 250 mg p.o. q.6 h. for C. difficile. We will identify her home medications and continue these as appropriate. We will check a CBC, CMP, magnesium in the morning. She was given 2 L of fluid in the emergency room. We will continue saline 125 an hour. The patient has been getting Diflucan 1 pill a week for 4 weeks for yeast in her groin folds, as well as the daughter reported yeast in her urine. We will start fluconazole 100 mg IV q.24 h., and we will follow. For DVT prophylaxis, we will use SCDs, holding off on any anticoagulation as she is anemic and just received blood yesterday. For GI prophylaxis, Prilosec and we will start Culturelle. Further treatments pending hospital course. Assessment and plan was discussed with Dr. Desai. Patient seen and examined by me face to face, all the laboratory, vitals signs and images were reviewed, patient brought to the Emergency Department due to diarrhea, she looks dehydrated, C diff is positive, she will receive gently IV fluids, I am not sure if she has a history of CHF, we will start treatment with Vancomycin PO, we will correct electrolyte imbalance, she is having generalized tremors, I believe she has dementia, not answering my questions, a friend is at the bedside but has not all the information, her abdomen is a little bit distended with hyperactive bowel sounds, I agree with the rest of the [employer]'s assessment and plan, Aramis Wall MD. Dictated by WILLI Malhotra for Aramis Guillaume MD cc: WILLI Malhotra MD [facility]
[2019-06-08 20:40] LABS: AGAP 11; BUN 9 mg/dL (8-22); CALCIUM 7.1 mg/dL (8.8-10.2); CHLORIDE 107 mmol/L (98-107); COSMO 285; CREATININE 0.5 mg/dL (0.5-0.9); ESTIMATED GFR > 60; GLUCOSE 125 mg/dL (70-104); POTASSIUM 3.1 mmol/L (3.5-5.1); SODIUM 143 mmol/L (136-145); TCO2 25 mmol/L (25-35)
[2019-06-08] MEDS: ULTRAM PO SCH (21:18)
[2019-06-08] MEDS: MARINOL PO SCH (21:20)
[2019-06-08] MEDS: PREDNISONE PO SCH (21:20)
[2019-06-08] MEDS ORDERED: TYLENOL PO PRN (22:57)
[2019-06-08] MEDS: POTASSIUM CHLORIDE 40 MEQ in NS 1,000 ML IV SCH (23:21)
[2019-06-09] MEDS: VANCOCIN PO SCH ×4 (03:44→20:44)
[2019-06-09] MEDS: EFFEXOR XR PO SCH ×2 (03:52→20:44)
[2019-06-09] MEDS: MARINOL PO SCH ×2 (08:38→20:44)
[2019-06-09] MEDS: ULTRAM PO SCH ×2 (08:38→20:45)
[2019-06-09] MEDS: PREDNISONE PO SCH ×2 (08:39→20:44)
[2019-06-09] MEDS: CULTURELLE PO SCH ×2 (08:39→20:44)
[2019-06-09 09:27] LABS: BASO% 0.1 % (0.0-0.8); HEMATOCRIT 26.1 % (37.0-47.0); HEMOGLOBIN 8.5 g/dL (12.0-16.0); IMM GRAN% 0.4 % (0.0-0.5); LYMPH# 2.33 X1000 (1.2-3.4); LYMPH% 21.8 % (20.5-51.1); MCHC 32.6 g/dL (33-37); MCV 107.4 FL (81-99); MONO% 5.4 % (1.7-9.3); MPV 10.1 FL (7.4-10.4); NEUT# 7.72 X1000 (1.4-6.5); NEUT% 72.3 % (42.2-75.2); PLT 158 X1000 (130-400); RBC 2.43 XMIL (4.2-5.4); WBC 10.68 X1000 (4.8-10.8)
[2019-06-09 09:28] LABS: BASO# 0.01 X1000 (0.0-0.2); IMM GRAN# 0.04 X1000 (0.0-0.04); MONO# 0.58 X1000 (0.11-0.59)
[2019-06-09 09:40] LABS: ESTIMATED GFR > 60
[2019-06-09 09:52] LABS: AGAP 8; ALB/GLOB RATIO 1.8; ALBUMIN 2.8 g/dL (3.5-5.0); ALKALINE PHOSPHATASE 48 U/L (32-104); BUN 8 mg/dL (8-22); CHLORIDE 109 mmol/L (98-107); COSMO 281; CREATININE 0.5 mg/dL (0.5-0.9); GLUCOSE 115 mg/dL (70-104); GOT 21 U/L (10-30); GPT 34 U/L (10-36); MAGNESIUM 1.6 mg/dL (1.5-2.7); SODIUM 141 mmol/L (136-145); TCO2 24 mmol/L (25-35); TOTAL BILIRUBIN 0.51 mg/dL (0.20-1.00); TOTAL PROTEIN 4.4 g/dL (6.3-8.3)
[2019-06-09] MEDS: POTASSIUM CHLORIDE 40 MEQ in NS 1,000 ML IV SCH ×2 (12:04→23:07)
--- NOTE | 2019-06-09 14:03 | PROGRESS NOTE ---
DATE: 06/09/2019 SUBJECTIVE: The patient seems to be doing better today compared with yesterday. She is still having bowel movements, diarrhea. She seems to be more awake, more oriented today. She is able to recognize family members at the bedside. For now, we will continue treating this patient and continue with IV fluids. She is getting potassium through her IV. OBJECTIVE: Vital Signs: Temperature 98.9 degrees, pulse 76, respiratory rate 16, blood pressure 127/49, oxygen saturation 100% on 2 L of nasal cannula. HEENT: Head normocephalic, no trauma. PERRLA. Neck: Supple. No JVD. Central trachea. Chest: Clear to auscultation. No wheezing. No rales. Abdomen: Soft. Bowel sounds hyperactive. Some tenderness to palpation at the level of the periumbilical area. Extremities: No edema, no clubbing, no cyanosis. Neurological examination: This patient is alert. She is awake. She is able to recognize family members at the bedside. She moves all 4 extremities spontaneously. She seems to have generalized weakness, which apparently is chronic. LABORATORY: WBC 10.6, hemoglobin 8.5, hematocrit 26.1, platelets 158. Sodium 141, potassium 3, chloride 109, bicarbonate 24. BUN 8, creatinine 0.5, glucose 115, calcium 7, albumin 2.8. ASSESSMENT AND PLAN: 1. Clostridium difficile colitis. This patient is still having diarrhea. We will continue with intravenous fluids with potassium. We will continue also with vancomycin oral. She seems to be doing better today. 2. Nausea, vomiting, likely secondary to #1. She seems to be better. She is hungry. Continue with the diet. 3. Hypokalemia. I will replace the potassium through the intravenous fluids. 4. Leukocytosis, resolved. 5. History of urinary tract infection. Urine culture has been negative so far. We will monitor this closely. 6. Chronic lymphocytic leukemia, stable. We will continue to monitor. Probably she needs to be seen by her parcel wrapper/oncologist as an outpatient. 7. Chronic anemia, aware, stable. 8. Deep vein thrombosis prophylaxis with sequential compression devices. 9. Hypoxemic respiratory failure which is chronic. She is on home oxygen. We will continue to monitor. cc: Aramis Guillaume MD
[2019-06-09] MEDS: DIFLUCAN 100 MG/NS 100 MG/50 ML IVPB IV SCH (14:48)
[2019-06-10] MEDS: VANCOCIN PO SCH ×4 (02:13→21:02)
[2019-06-10 07:18] LABS: HEMATOCRIT 25.5 % (37.0-47.0); HEMOGLOBIN 8.3 g/dL (12.0-16.0); MCH 35.5 PG (27-31); MCHC 32.5 g/dL (33-37); MPV 10.2 FL (7.4-10.4); PLT 145 X1000 (130-400); RBC 2.34 XMIL (4.2-5.4); WBC 5.95 X1000 (4.8-10.8)
[2019-06-10 07:19] LABS: BASO# 0.01 X1000 (0.0-0.2); BASO% 0.2 % (0.0-0.8); EOS# 0.02 X1000 (0.0-0.7); EOS% 0.3 % (0.0-10.0); IMM GRAN# 0.02 X1000 (0.0-0.04); IMM GRAN% 0.3 % (0.0-0.5); LYMPH# 1.79 X1000 (1.2-3.4); LYMPH% 30.1 % (20.5-51.1); MONO# 0.25 X1000 (0.11-0.59); MONO% 4.2 % (1.7-9.3); NEUT# 3.86 X1000 (1.4-6.5); NEUT% 64.9 % (42.2-75.2)
[2019-06-10 07:27] LABS: AGAP 8; BUN 6 mg/dL (8-22); CALCIUM 7.3 mg/dL (8.8-10.2); CHLORIDE 109 mmol/L (98-107); COSMO 277; CREATININE 0.4 mg/dL (0.5-0.9); ESTIMATED GFR > 60; GLUCOSE 100 mg/dL (70-104); MAGNESIUM 1.7 mg/dL (1.5-2.7); PHOSPHORUS 1.9 mg/dL (2.7-4.5); SODIUM 140 mmol/L (136-145); TCO2 23 mmol/L (25-35)
[2019-06-10] MEDS ORDERED: NORVASC PO ONE (09:06)
[2019-06-10] MEDS: CULTURELLE PO SCH ×2 (09:26→21:01)
[2019-06-10] MEDS: PREDNISONE PO SCH ×2 (09:26→21:02)
[2019-06-10] MEDS: ULTRAM PO SCH ×2 (09:27→21:01)
[2019-06-10] MEDS: MARINOL PO SCH ×2 (09:27→21:01)
[2019-06-10] MEDS ORDERED: POTASSIUM CHLORIDE 40 MEQ in NS 1,000 ML IV SCH (09:37)
--- NOTE | 2019-06-10 13:30 | PROGRESS NOTE ---
DATE: 06/10/2019 SUBJECTIVE: Patient seems to be doing better, but she is still having diarrhea, at least 4 episodes of watery bowel movements during the night. She seems to be really weak. Potassium level improved. Blood pressure a little bit elevated, and I will give her a low dose of amlodipine x1 to see how she does. Otherwise, vital signs are stable. She is anemic, but the occult blood in the stool is negative. OBJECTIVE: Vital Signs: Temperature 97.6 degrees, pulse 75, respiratory rate 14, blood pressure 183/68, oxygen saturation 100% on nasal cannula. HEENT: Head normocephalic, no trauma. PERRLA. Neck: Supple. No JVD. No masses. Central trachea. Chest: Clear to auscultation. No wheezing. No rales. Abdomen: Soft, but she has generalized tenderness to palpation, especially on the left side of the abdomen. No signs of peritoneal irritation. No rebound. Positive bowel sounds, actually hyperactive. Extremities: No edema, no clubbing, no cyanosis. Neurological: The patient is alert. She is awake. She is able to recognize family members at the bedside. She moves all 4 extremities spontaneously. She does have generalized weakness. LABORATORY: WBC 5.9, hemoglobin 8.3, hematocrit 25.5, platelets 145,000. Sodium 140, potassium 4, chloride 109, bicarbonate 23, BUN 6, creatinine 0.6, glucose 100, calcium 7.3. Magnesium 1.7. ASSESSMENT AND PLAN: 1. Clostridium difficile colitis. This patient is still having diarrhea, at least 4 episodes during the night. I will continue with IV fluids with potassium, but I will decrease the rate. I will advance her diet since she is tolerating liquid diet. I will avoid dairy products. We will continue with vancomycin per mouth. 2. Nausea and vomiting, likely due to #1. She seems to be better. 3. Hypokalemia, resolved. 4. Leukocytosis, resolved. 5. History of urinary tract infection. Urine culture has been negative so far. We will monitor this patient closely. 6. Chronic lymphocytic leukemia, stable. We will monitor. 7. Chronic anemia. Aware. Stable. 8. Deep vein thrombosis prophylaxis with sequential compression devices. 9. Hypoxemic respiratory failure, which is chronic. She is on home O2. We will continue to monitor. 10. Hypertension. I will give her a low dose of amlodipine to see how she does, but also she is getting fluids which I will decrease. 11. Generalized weakness and physical deconditioning. I have requested Physical Therapy and Occupational Therapy to evaluate this patient. cc: Aramis Guillaume MD
[2019-06-10] MEDS: EFFEXOR XR PO SCH (21:07)
[2019-06-11] MEDS: VANCOCIN PO SCH ×4 (02:40→21:41)
[2019-06-11 07:03] LABS: BASO# 0.01 X1000 (0.0-0.2); BASO% 0.2 % (0.0-0.8); EOS# 0.07 X1000 (0.0-0.7); EOS% 1.5 % (0.0-10.0); HEMATOCRIT 27.9 % (37.0-47.0); IMM GRAN# 0.02 X1000 (0.0-0.04); IMM GRAN% 0.4 % (0.0-0.5); LYMPH# 1.77 X1000 (1.2-3.4); MCH 34.9 PG (27-31); MCHC 32.3 g/dL (33-37); MCV 108.1 FL (81-99); MONO# 0.22 X1000 (0.11-0.59); MONO% 4.7 % (1.7-9.3); MPV 10.1 FL (7.4-10.4); NEUT# 2.57 X1000 (1.4-6.5); NEUT% 55.2 % (42.2-75.2); PLT 155 X1000 (130-400); RBC 2.58 XMIL (4.2-5.4); RDW 23.3 % (11.5-14.5); WBC 4.66 X1000 (4.8-10.8)
[2019-06-11 07:19] LABS: AGAP 6; BUN 8 mg/dL (8-22); CALCIUM 8.1 mg/dL (8.8-10.2); CHLORIDE 112 mmol/L (98-107); COSMO 286; CREATININE 0.5 mg/dL (0.5-0.9); ESTIMATED GFR > 60; GLUCOSE 110 mg/dL (70-104); MAGNESIUM 1.8 mg/dL (1.5-2.7); PHOSPHORUS 2.3 mg/dL (2.7-4.5); POTASSIUM 4.4 mmol/L (3.5-5.1); SODIUM 144 mmol/L (136-145); TCO2 26 mmol/L (25-35)
[2019-06-11] MEDS: CULTURELLE PO SCH ×2 (09:52→21:40)
[2019-06-11] MEDS: PREDNISONE PO SCH ×2 (09:52→21:40)
[2019-06-11] MEDS: ULTRAM PO SCH ×2 (09:52→21:40)
[2019-06-11] MEDS: MARINOL PO SCH ×2 (09:52→21:41)
--- NOTE | 2019-06-11 10:47 | PROGRESS NOTE ---
DATE: 06/11/2019 SUBJECTIVE: This patient seems to be doing better today. She is still having diarrhea. The abdominal pain is getting better. She is tolerating p.o. We will continue with the same management. Hopefully, in 1 or 2 days, I will discharge this patient home. OBJECTIVE: Vital Signs: Temperature 97.7 degrees, pulse 76, respiratory rate 16, blood pressure 158/64, oxygen saturation 100% on 2 L of nasal cannula. HEENT: Head normocephalic. No trauma. PERRLA. Neck: Supple. No JVD. No masses. Central trachea. Chest: Clear to auscultation. No wheezing. No rales. Abdomen: Soft. Generalized tenderness to palpation, especially on the left side of the abdomen. No signs of peritoneal irritation. No rebound. Positive bowel sounds but actually hyperactive. Extremities: No edema, no clubbing, no cyanosis. Neurological Examination: This patient is awake, alert. She is following commands. She recognized family members at the bedside. She is eating. Laboratory: WBC 4.6, hemoglobin 9, hematocrit 27.9, platelets 155,000. Sodium 144, potassium 4.4, chloride 112, bicarbonate 26, BUN 8, creatinine 0.5, glucose 110, calcium 8.1, magnesium 1.8. ASSESSMENT AND PLAN: 1. Clostridium difficile colitis. This patient is still having some diarrhea, 3 episodes of watery diarrhea during the night but I believe she is getting better. The abdomen looks less distended. The diet has been advanced and she is tolerating that. She seems to be more awake. Continue with the same management and fluids. 2. Nausea and vomiting, likely due to #1, resolved. 3. Hypokalemia, resolved. 4. Leukocytosis, resolved. 5. History of urinary tract infection. Urine culture has been negative so far. 6. Chronic lymphocytic leukemia, stable. We will monitor. 7. Chronic anemia. Aware. 8. Deep vein thrombosis prophylaxis with sequential compression devices. 9. Hypoxemic respiratory failure, which is chronic. She is on home oxygen. Continue with the same management. 10. Hypertension. Blood pressure seems to be more stable. I will just monitor. 11. Generalized weakness and physical deconditioning. Continue physical therapy and occupational therapy. 12. Overall, this patient is doing better. She is still having diarrhea and some abdominal pain. I feel that she needs to stay here at least 1 or 2 more days, and then she can go home, hopefully tomorrow. cc: Aramis Guillaume MD
[2019-06-11] MEDS: 1/2 NS 1,000 ML IV SCH (14:55)
[2019-06-11] MEDS: EFFEXOR XR PO SCH (21:39)
[2019-06-12] MEDS: VANCOCIN PO SCH ×4 (04:38→20:30)
[2019-06-12 07:44] LABS: AGAP 7; BUN 6 mg/dL (8-22); CHLORIDE 113 mmol/L (98-107); COSMO 278; CREATININE 0.4 mg/dL (0.5-0.9); ESTIMATED GFR > 60; GLUCOSE 88 mg/dL (70-104); PHOSPHORUS 2.7 mg/dL (2.7-4.5); POTASSIUM 3.1 mmol/L (3.5-5.1); SODIUM 141 mmol/L (136-145); TCO2 21 mmol/L (25-35)
[2019-06-12 07:53] LABS: CALCIUM 6.3 mg/dL (8.8-10.2)
[2019-06-12] MEDS ORDERED: KLOR-CON PO ONE (08:58)
[2019-06-12] MEDS ORDERED: CALCIUM GLUCONATE 4.65 MEQ in NS 50 ML IV ONE (08:59)
[2019-06-12] MEDS: MARINOL PO SCH ×2 (10:21→20:30)
[2019-06-12] MEDS: CULTURELLE PO SCH ×2 (10:21→20:31)
[2019-06-12] MEDS: PREDNISONE PO SCH ×2 (10:21→20:31)
[2019-06-12] MEDS: ULTRAM PO SCH ×2 (10:21→20:31)
--- NOTE | 2019-06-12 17:13 | PROGRESS NOTE ---
DATE: 06/12/2019 PRIMARY CARE PHYSICIAN: No primary care Physician. SUBJECTIVE: History of CLL, chronic anemia, presented to the emergency room with her daughter complaining of vomiting and diarrhea started that morning. Shortly after symptoms started, she was found to have a temperature of 102 degrees. Daughter states she was admitted for 23 hour observation from the to and was discharged on the in the morning. States that the patient ate well for breakfast and lunch, although her athletic equipment custodian says she did not eat well at night for supper. Found Clostridium difficile toxin positive in the emergency room and admitted. She seems to be slowly improving. She is still pretty weak and puny. Daughter was at the bedside. OBJECTIVE: Vital Signs: Temperature 97.9 degrees, pulse 75, respirations 16, blood pressure 142/76. HEENT: Pupils are equal and round. Lungs: Clear in all lung ugarte. Cardiovascular: Regular rate without murmur or S3. Abdomen: Soft. Skin is warm and dry. Urine output was 3000 mL. She said her stools are starting to form a little better. ASSESSMENT AND PLAN: 1. Clostridium difficile colitis. Stools are starting to form a little better. May start to get some physical therapy. Abdomen is less distended. She seems to be more awake and alert than the notes recorded before. 2. Nausea, vomiting, improved. 3. Hypokalemia, resolved. 4. Leukocytosis, resolved. 5. History of urinary tract infection or sediment. Cultures are negative. 6. Chronic lymphocytic leukemia. Aware. 7. Chronic anemia, aware. 8. Deep venous thrombosis with thrombosis prophylaxis. Continue sequential compression devices. 9. Hypoxemic respiratory failure which is chronic. She is on home oxygen. Good air and gas exchange at this time. 10. Hypertension. Blood pressure stable. 11. Generalized weakness and physical deconditioning. Continue physical therapy and occupational therapy. Overall, she seems to be improving. REVIEW OF ORDERS: She is getting vancomycin 125 mg p.o. q.6 hours. Getting Ultram 100 mg p.o. daily, Effexor ER 37.5 mg at bedtime, Ultram 50 mg at bedtime, lactobacillus rhamnosus 1 twice a day, Marinol 5 mg p.o. b.i.d., and then she got 1 dose of calcium gluconate. REVIEW OF LABS: Yesterday, white count 4660, hematocrit is 27, hemoglobin 9, platelet count a 155,000 sodium 141, potassium 3.1, chloride 113, BUN 6, creatinine 0.4. She is on a GI soft diet. cc: Arian Wilson MD
[2019-06-12] MEDS: EFFEXOR XR PO SCH (20:30)
[2019-06-12] MEDS: 1/2 NS 1,000 ML IV SCH (23:49)
[2019-06-13] MEDS: VANCOCIN PO SCH ×4 (02:24→20:36)
[2019-06-13 06:58] LABS: EOS# 0.02 X1000 (0.0-0.7); EOS% 0.5 % (0.0-10.0); HEMATOCRIT 26.4 % (37.0-47.0); HEMOGLOBIN 8.4 g/dL (12.0-16.0); IMM GRAN# 0.02 X1000 (0.0-0.04); IMM GRAN% 0.5 % (0.0-0.5); LYMPH# 1.83 X1000 (1.2-3.4); LYMPH% 46.1 % (20.5-51.1); MCH 34.4 PG (27-31); MCHC 31.8 g/dL (33-37); MCV 108.2 FL (81-99); MONO# 0.33 X1000 (0.11-0.59); MONO% 8.3 % (1.7-9.3); MPV 9.7 FL (7.4-10.4); NEUT# 1.77 X1000 (1.4-6.5); NEUT% 44.6 % (42.2-75.2); PLT 177 X1000 (130-400); RBC 2.44 XMIL (4.2-5.4); RDW 22.1 % (11.5-14.5); WBC 3.97 X1000 (4.8-10.8)
[2019-06-13 07:17] LABS: AGAP 6; BUN 8 mg/dL (8-22); CALCIUM 8.1 mg/dL (8.8-10.2); CHLORIDE 106 mmol/L (98-107); COSMO 280; CREATININE 0.4 mg/dL (0.5-0.9); ESTIMATED GFR > 60; GLUCOSE 99 mg/dL (70-104); POTASSIUM 3.9 mmol/L (3.5-5.1); SODIUM 141 mmol/L (136-145); TCO2 29 mmol/L (25-35)
[2019-06-13 07:27] LABS: LYMPHS 50 % (21-51); MONO 6 % (1-9); SEGS 44 % (42-75)
[2019-06-13 07:28] LABS: ANISOCYTOSIS 1+
[2019-06-13] MEDS: MARINOL PO SCH ×2 (08:31→20:36)
[2019-06-13] MEDS: CULTURELLE PO SCH ×2 (08:48→20:36)
[2019-06-13] MEDS: ULTRAM PO SCH ×2 (08:48→20:35)
[2019-06-13] MEDS: PREDNISONE PO SCH ×2 (08:49→20:35)
[2019-06-13] MEDS: 1/2 NS 1,000 ML IV SCH (13:43)
--- NOTE | 2019-06-13 14:15 | PROGRESS NOTE ---
DATE: 06/13/2019 SUBJECTIVE: Ms. Heck is still pretty weak. Daughter was a little concerned because she did not remember her name and some of the family's name, and is a little more confused this morning. OBJECTIVE: Vital Signs: Temperature 98.0 degrees, pulse 78, respirations 18, blood pressure 134/65. Eyes: Pupils are equal and round. Lungs: Clear in all lung ugarte. Cardiovascular exam: Regular rhythm and rate without murmur or S3. Abdomen: Soft. Skin: Warm and dry. : Urine output is 4200 mL. ASSESSMENT AND PLAN: 1. Clostridium difficile colitis and saw a little improvement. Bowels starting to form. Abdomen less distended and uncomfortable. 2. Nausea and vomiting, improved. 3. Hypokalemia, which has been supplemented, resolved. 4. Leukocytosis, resolved. 5. History of urinary tract infection. Cultures were negative. 6. Chronic lymphocytic leukemia. Aware. 7. Chronic anemia, aware. 8. Deep venous thrombosis. Continue thrombosis prophylaxis. 9. Hypoxemic respiratory failure which is chronic on home oxygen. Good air and gas exchange at this time. 10. Hypertension. Blood pressure controlled. 11. Generalized weakness and deconditioning. Continue physical therapy. REVIEW OF LABS: Her lab from today: White count 3970, hematocrit is 26, hemoglobin 8.4, platelet count 177,000. Sodium 141, potassium 3.9, chloride 106. BUN 8, creatinine 0.4. Her calcium was 8.1. She did request that Dr. Torres would be notified that she is here and see if he wanted to do any transfusions. Continue physical therapy. The plan is to take her home. Like to get her a little stronger where she can at least ambulate to the bedside commode. cc: Arian Wilson MD
[2019-06-13] MEDS: EFFEXOR XR PO SCH (20:36)
[2019-06-14] MEDS: VANCOCIN PO SCH ×4 (01:42→20:35)
[2019-06-14] MEDS: 1/2 NS 1,000 ML IV SCH (04:16)
[2019-06-14] MEDS: CULTURELLE PO SCH ×2 (09:28→20:35)
[2019-06-14] MEDS: PREDNISONE PO SCH ×2 (09:28→20:35)
[2019-06-14] MEDS: MARINOL PO SCH ×2 (09:33→20:36)
[2019-06-14] MEDS: ULTRAM PO SCH ×2 (09:33→20:36)
--- NOTE | 2019-06-14 13:02 | PROGRESS NOTE ---
DATE: 06/14/2019 SUBJECTIVE: Ms. Heck is feeling better and a little stronger. She was sitting up in a chair. OBJECTIVE: Vital Signs: She remains afebrile, temperature 97.5 degrees, pulse 78, respirations 18, blood pressure 162/61. HEENT: Pupils are equal and round. Lungs: Clear in all lung ugarte. Cardiovascular: Regular rhythm and rate without murmur or S3. Urine Output: 2300 mL. ASSESSMENT AND PLAN: 1. Clostridium difficile colitis, with improvement. She is stronger, doing better. 2. Nausea and vomiting, improved. 3. Hypokalemia. This has been supplemented and resolved. 4. Leukocytosis, resolved. 5. History of urinary tract infection, treated. Cultures were negative. 6. Chronic lymphocytic leukemia. 7. Chronic anemia. 8. Deep venous thrombosis prophylaxis . 9. Hypoxemic respiratory failure, which is chronic. She is on home oxygen. DISPOSITION: I think she will be ready go home tomorrow. We are going to discontinue her Johns catheter. Continue present orders. cc: Arian Wilson MD MTDD
[2019-06-14] MEDS: EFFEXOR XR PO SCH (20:36)
[2019-06-15] MEDS: VANCOCIN PO SCH ×4 (01:32→21:02)
--- NOTE | 2019-06-15 08:38 | HEMO/ONC CONSULTATION ---
DATE: 06/14/2019 ADMITTING PHYSICIAN: Dr. Aramis Desai. REQUESTING PHYSICIAN: Dr. Aramis Desai. We appreciate this consult. CHIEF COMPLAINT: Lymphocytic leukemia. HISTORY OF PRESENT ILLNESS: Ms. Clementine Heck is an 83-year-old female, well known to Dr. Torres with a history of T-cell large granular lymphocytic leukemia. She has been treated on methotrexate and prednisone, which have recently been on hold secondary to profound anemia. She did undergo CT scan on 06/06/2019, which revealed stable disease. The patient presented to [facility] Emergency Department complaining of nausea, vomiting, and diarrhea, with a fever to 102 degrees. The patient was admitted for 23-hour observation, and was found to have Clostridium difficile toxin positive in her blood work. She was admitted for treatment. We are consulted as the patient is well known to us. PAST MEDICAL HISTORY: 1. T-cell large granular lymphocytic leukemia. 2. Chronic anemia secondary to treatment from #1. 3. Chronic hypoxic respiratory failure, wearing O2 at home. 4. Hypertension. SOCIAL HISTORY: The patient does not use tobacco, alcohol, or illicit drugs. She is cared for by her caregiver and daughter. She lives at home. MEDICATIONS ON ADMISSION: 1. Zofran. 2. Culturelle. 3. Effexor. 4. Marinol. 5. Prednisone, which has been on hold. 6. Tylenol. 7. Methotrexate, which has been on hold. 8. Ultram. ALLERGIES: Adhesives, dyes, and lidocaine. REVIEW OF SYSTEMS: A 14-point review of systems was obtained and is negative, except for mentioned in the HPI. PHYSICAL EXAMINATION: General: Ms. Heck is a frail, 83-year-old female, lying supine in bed in no immediate distress. HEENT: Normocephalic, atraumatic. Mucous membranes are pale and moist. Sclerae anicteric. Extraocular movements intact. Neck: Supple. Lungs: Clear to auscultation bilaterally. Chest expansion is equal bilaterally. CV: S1, S2 is heard without murmur, rub, or gallop. Abdomen: Soft, nondistended, nontender. Bowel sounds slightly hyperactive. Extremities: Without clubbing or cyanosis. The patient does have trace bilateral lower extremity edema. Dermatologic: No rashes, bruises, or lesions. Neurologic: The patient is awake, alert, and oriented x3. She has no focal deficits. LABORATORY DATA: Hemoglobin 8.4, hematocrit 26.4, white blood cell count is 3.97, platelets 177,000. Sodium 141, potassium 3.9, chloride 106, CO2 is 29, BUN 8, creatinine 0.4, glucose is 99, calcium is 8.1. Blood cultures are negative. ASSESSMENT AND PLAN: 1. T-cell large granular lymphocytic leukemia. The patient has been maintained on methotrexate and prednisone, which have been on hold recently secondary to profound anemia. Recent CT on 06/06/2019 revealed stable disease. We will continue to monitor. 2. Clostridium difficile colitis. Currently on vancomycin by mouth. 3. Hypoxemic respiratory failure, which is chronic. The patient does wear oxygen at home. She is currently wearing nasal cannula oxygen at 2 liters with an oxygen saturation of 99%. 4. Chronic anemia. Hemoglobin is currently 8.4. We will continue to monitor. If hemoglobin drops below 8.0, we will transfuse 1 unit of packed red blood cells. 5. Hypertension. Blood pressure is stable at 151/57 on medication. We will follow along with you and make further recommendations pending outcomes. The above reflects the history, exam, assessment, and plan of Dr. Torres. Dictated by WILLI Robles for Sanchez Torres MD cc: WILLI Robles MD
[2019-06-15] MEDS: 1/2 NS 1,000 ML IV SCH ×2 (08:52→11:00)
[2019-06-15] MEDS: PREDNISONE PO SCH ×2 (08:53→21:01)
[2019-06-15] MEDS: CULTURELLE PO SCH ×2 (08:53→21:00)
[2019-06-15] MEDS: ULTRAM PO SCH ×2 (08:54→21:00)
[2019-06-15] MEDS: MARINOL PO SCH ×2 (08:54→21:01)
--- NOTE | 2019-06-15 15:36 | PROGRESS NOTE ---
DATE: 06/15/2019 SUBJECTIVE: She is doing better, feeling better, a little stronger, so I am going to try and get her up and get her Johns catheter out and hopefully she will be ready go home tomorrow. OBJECTIVE: Vital Signs: Temperature 98.3 degrees, pulse 78, respirations 18, blood pressure 152/62. Eyes: Pupils are equal and round. Lungs: Clear in all lung ugarte. Cardiovascular exam: Regular rhythm and rate without murmur or S3. Abdomen: Soft. Skin: Warm and dry. : Urine output is 1700 mL. ASSESSMENT AND PLAN: 1. T-cell large granular lymphocytic leukemia. She has been maintained on methotrexate and prednisone. Recently found profound anemia. A recent CT scan done on 06/06/2019 revealed stable disease. 2. Clostridium difficile colitis, currently getting vancomycin by mouth. Doing better. Stools are forming. 3. Hypoxemic respiratory failure which is chronic. She does have oxygen at home. 4. Chronic anemia. Hemoglobin 8.4. If hemoglobin dips below 8, will transfuse. 5. Hypertension. Blood pressure controlled. Hope to get her home tomorrow I guess with the whole help of home health. Continue physical therapy. cc: Arian Wilson MD
[2019-06-15] MEDS: EFFEXOR XR PO SCH (21:00)
[2019-06-16] MEDS: VANCOCIN PO SCH ×3 (02:15→14:45)
[2019-06-16 08:46] VITALS: BP 156/58
[2019-06-16] MEDS: ULTRAM PO SCH (09:46)
[2019-06-16] MEDS: CULTURELLE PO SCH (09:46)
[2019-06-16] MEDS: PREDNISONE PO SCH (09:47)
[2019-06-16] MEDS: MARINOL PO SCH (09:47)
[2019-06-16] MEDS: 1/2 NS 1,000 ML IV SCH (11:49)
--- NOTE | 2019-06-16 13:54 | DISCHARGE SUMMARY ---
ADMISSION DATE: 06/08/2019 DISCHARGE DATE: 06/16/2019 She has no primary care physician. Came in with generalized weakness, nausea, vomiting, diarrhea. This is an 83-year-old female with history of CLL, chronic anemia, who presented to the emergency room with her daughter complaining of vomiting and diarrhea that started the morning of admission on 06/08/2019. Shortly after symptoms started she was found to have a temperature 102 degrees. Daughter states that she was admitted for 23 hour observation on the of this month and been discharged the following morning. She did state the patient ate well for breakfast and lunch and then her geological survey field assistant stated she did not eat well for supper. She had no other specific complaints. She is found to have Clostridium difficile toxin in the emergency room. Admitted for further evaluation and treatment. Ms Heck was treated at [facility] May 23 to May 25 for altered mental status presumably secondary to urinary tract infection. She has had culture pain per Dr. Torres's office on the . Cultures were also sent on the . Both of these returned with no growth but the daughter said she had antibiotics for this. Cultures were done. The patient already on antibiotics. She did send her home on 5 days of Levaquin. ADMISSION DIAGNOSIS: 1. Clostridium difficile toxin diarrhea and colitis. 2. Nausea, vomiting. 3. Hypokalemia . 4. Leukocytosis. 5. Possible urinary tract infection. 6. Chronic lymphocytic leukemia and chronic anemia. Hematology oncology followed along and Dr. Torres is her oncologist. She has a T-cell large granular lymphocytic leukemia and she has been maintained on methotrexate, prednisone which has been recently held because of profound anemia. Recent CT on 06/06/2019 revealed stable disease. The patient showed slow improvement. Bowels started to form. She does have underlying hypoxemic respiratory failure, underlying COPD and she is on home O2. She has a chronic anemia. Hemoglobin remained stable around 8 and they usually transfuse if hemoglobin gets below less than 8 and blood pressure history hypertension blood pressure seemed to be well controlled. She showed steady improvement. The family would like to take her home. They have around the clock sitters and so plan is to get her set up to go home. She is a little stronger sitting up in a chair. DISCHARGE MEDICATIONS: She will take Marinol 5 mg p.o. b.i.d., Culturelle 1 b.i.d., prednisone 5 mg p.o. b.i.d., tramadol or Ultram 50 mg at bedtime and 100 mg I think in the morning, vancomycin 125 mg q.6 hours which will give her for another 14 days, Effexor 37.5 mg at bedtime. She has home O2 already. cc: Arian Wilson MD
[2019-06-16 14:41] LABS: BASO# 0.01 X1000 (0.0-0.2); BASO% 0.3 % (0.0-0.8); EOS# 0.03 X1000 (0.0-0.7); EOS% 0.8 % (0.0-10.0); HEMATOCRIT 26.8 % (37.0-47.0); HEMOGLOBIN 8.6 g/dL (12.0-16.0); IMM GRAN# 0.03 X1000 (0.0-0.04); IMM GRAN% 0.8 % (0.0-0.5); LYMPH# 1.64 X1000 (1.2-3.4); LYMPH% 45.3 % (20.5-51.1); MCH 35.2 PG (27-31); MCHC 32.1 g/dL (33-37); MCV 109.8 FL (81-99); MONO# 0.38 X1000 (0.11-0.59); MONO% 10.5 % (1.7-9.3); MPV 9.9 FL (7.4-10.4); NEUT# 1.53 X1000 (1.4-6.5); NEUT% 42.3 % (42.2-75.2); PLT 228 X1000 (130-400); RBC 2.44 XMIL (4.2-5.4); WBC 3.62 X1000 (4.8-10.8)
[2019-06-16 15:02] LABS: AGAP 10; ALB/GLOB RATIO 1.8; ALKALINE PHOSPHATASE 53 U/L (32-104); BUN 15 mg/dL (8-22); CALCIUM 8.4 mg/dL (8.8-10.2); CHLORIDE 100 mmol/L (98-107); COSMO 278; CREATININE 0.4 mg/dL (0.5-0.9); ESTIMATED GFR > 60; GLUCOSE 122 mg/dL (70-104); GOT 18 U/L (10-30); GPT 45 U/L (10-36); POTASSIUM 4.3 mmol/L (3.5-5.1); SODIUM 138 mmol/L (136-145); TCO2 28 mmol/L (25-35); TOTAL BILIRUBIN 0.41 mg/dL (0.20-1.00); TOTAL PROTEIN 4.7 g/dL (6.3-8.3)
[2019-06-16 15:32] LABS: ANISOCYTOSIS 2+; BANDS 2 % (0-1); LYMPHS 50 % (21-51); MICROCYTOSIS 2+; MONO 4 % (1-9); SEGS 44 % (42-75)
== END 2019-06-16 17:08 | disposition home health service (06) | DRG 872 ==
LOC: SUPCPDRO → ED 10:37 → 3N 14:23 → SUATTDRO 14:23
PROVIDERS: ATTEND Emergency Medicine

== ENCOUNTER 2019-07-06 15:45 | Inpatient (IN) ==
[2019-07-06 18:11] LABS: HEMATOCRIT 24.3 % (37.0-47.0); HEMOGLOBIN 7.5 g/dL (12.0-16.0); MCH 36.8 PG (27-31); MCHC 30.9 g/dL (33-37); MCV 119.1 FL (81-99); RBC 2.04 XMIL (4.2-5.4); WBC 9.95 X1000 (4.8-10.8)
[2019-07-06 18:12] LABS: BASO# 0.01 X1000 (0.0-0.2); BASO% 0.1 % (0.0-0.8); IMM GRAN# 0.04 X1000 (0.0-0.04); IMM GRAN% 0.4 % (0.0-0.5); LYMPH# 2.61 X1000 (1.2-3.4); LYMPH% 26.2 % (20.5-51.1); MONO# 0.71 X1000 (0.11-0.59); MONO% 7.1 % (1.7-9.3); MPV 10.1 FL (7.4-10.4); NEUT# 6.58 X1000 (1.4-6.5); NEUT% 66.2 % (42.2-75.2); PLT 203 X1000 (130-400)
[2019-07-06 18:22] LABS: AGAP 8; ALB/GLOB RATIO 1.6; ALBUMIN 3.3 g/dL (3.5-5.0); ALKALINE PHOSPHATASE 59 U/L (32-104); BUN 12 mg/dL (8-22); CALCIUM 7.5 mg/dL (8.8-10.2); CHLORIDE 102 mmol/L (98-107); COSMO 277; CREATININE 0.5 mg/dL (0.5-0.9); ESTIMATED GFR > 60; GLUCOSE 134 mg/dL (70-104); GOT 11 U/L (10-30); GPT 13 U/L (10-36); POTASSIUM 2.8 mmol/L (3.5-5.1); SODIUM 138 mmol/L (136-145); TCO2 28 mmol/L (25-35); TOTAL BILIRUBIN 0.65 mg/dL (0.20-1.00); TOTAL PROTEIN 5.4 g/dL (6.3-8.3)
[2019-07-06] MEDS ORDERED: NS 1,000 ML IV ONE ×2 (18:38→20:10)
[2019-07-06] MEDS ORDERED: POTASSIUM CHLORIDE 40 MEQ/SWI 40 MEQ/100 ML IVPB IV ONE (18:39)
--- NOTE | 2019-07-06 18:41 | PROVIDER DOCUMENTATION ---
This chart was entered by Gayla Pond Scribe, acting as scribe for Олег Mccormick CRNP. HPI-Abdominal Pain/GI Problem - General Chief Complaint: Diarrhea Stated Complaint: UTI,diarrhea Time Seen by Provider: 07/06/19 18:00 Source: family Allergies/Adverse Reactions: Patient Allergies Allergy/AdvReac Type Severity Reaction Status Date / Time adhesive Allergy Intermediate RASH Verified 06/08/19 12:02 lidocaine [From Lidoderm] Allergy HIVES Verified 06/08/19 12:02 terbinafine HCl * Allergy ITCHING Verified 06/08/19 12:02 [From Lamisil] Home Medications: Home Medication List Medication Instructions Recorded Confirmed Last Taken Type Prednisone 5 mg PO BID 07/07/12 06/08/19 05/23/19 History Folic Acid 1 mg PO DAILY 10/09/12 06/08/19 05/23/19 History Cyanocobalamin (Vitamin B-12) 1,250 mcg PO DAILY 05/23/19 06/08/19 Unknown History [Vitamin B12] Docusate Sodium 100 mg PO BID 05/23/19 06/08/19 05/23/19 History Dronabinol [Marinol] 5 mg PO BID 05/23/19 06/08/19 05/23/19 History Hydrocodone/Chlorphen Polis 5 ml PO PRN PRN 05/23/19 06/08/19 Unknown History [Tussionex Liquid] Mv-Mn/Iron/FA/Herbal Cmplx#190 50 mcg PO DAILY 05/23/19 06/08/19 05/23/19 History [Vitamin D3 Complete Caplet] Sennosides/Docusate Sodium [Senna 1 ea PO PRN PRN 05/23/19 06/08/19 Unknown History Laxative Tablet] Tramadol HCl 50 mg PO QHS 05/23/19 06/08/19 05/22/19 History Tramadol [Ultram] 100 mg PO DAILY 05/23/19 06/08/19 05/23/19 History Venlafaxine HCl [Venlafaxine HCl 37.5 mg PO QHS 05/23/19 06/08/19 05/22/19 History ER] Lactobacillus Rhamnosus GG 1 ea PO BID 30 Days #60 cap 06/16/19 Unknown Rx [Culturelle] Vancomycin [Vancocin] 125 mg PO Q6HR 14 Days #56 cap 06/16/19 Unknown Rx - History of Present Illness-ABD Nature of Presenting Problems: 83 yof presents w/family to ed w/cc family are main historians, as pt is nonverbal. pt was seen in er and admitted 2 different times; 1st time for UTI and being resistent to antibiotics. 2nd admit was to [facility] for c. diff. pt was put on oral vancomycin and Dr. Montgomery took pt of rx 10 days ago. family is unsure why. pt has hx of Leukemia and dementia. pt HH rn sts pt had 5-6 episodes of runny diarrhea today, called Dr. Torres and was told to come to er. denies v/n., fever and chills. Last BM: other (today) Rectal Bleeding: reports: none Rectal Pain: reports: none Emesis Description: reports: none Review of Systems - Adult - REVIEW OF SYSTEMS - ADULT ROS:: ROS per family Constitutional: reports: no symptoms reported. denies: chills, fever, fatique Eyes: reports: no symptoms reported Ears, Nose, Mouth & Throat: reports: no symptoms reported Cardiovascular: reports: no symptoms reported Respiratory: reports: no symptoms reported Gastrointestinal: reports: no symptoms reported, diarrhea. denies: abdominal pain, nausea, vomiting Genitourinary: reports: no symptoms reported Musculoskeletal: reports: no symptoms reported Integumentary: reports: no symptoms reported Neurological: reports: no symptoms reported Psychiatric: reports: no symptoms reported Endocrine: reports: no symptoms reported Hematologic/Lymphatic: reports: no symptoms reported Allergic/Immunologic: reports: no symptoms reported All Other Systems: Reviewed and Negative Past History - Adult - PAST MEDICAL HISTORY-ADULT Review of Records: reports: Old Records Reviewed, Nursing Assessment Review, Medications Reviewed, Social history reviewed & non-contributory. Major Childhood Illnesses: reports: denies history Cardiovascular: reports: HTN Respiratory: reports: denies history Gastrointestinal: reports: denies history Obstetrical/Gynecological: reports: denies history Genitourinary: reports: denies history Musculoskeletal: reports: arthritis, other (scoliosis) Neurological: reports: dementia Endocrine/Immune: reports: Leukemia Other Conditions: reports: denies history - PRIOR SURGERIES/PROCEDURES Surgical/Procedure History: reports: hysterectomy, other - IMMUNIZATION STATUS Childhood Immunizations: See Nurse Assessment Flu Vaccine: See Nurse Assessment - FAMILY HISTORY Family History: reviewed, not pertinent - SOCIAL HISTORY Smoking: non-smoker Substance Use: none/never Physical Exam-General - PHYSICAL EXAM-ADULT Initial Vital Signs Reviewed: Yes - CONSTITUTIONAL General Appearance: alert, no apparent distress. negative: lethargic, obtunded, combative - EYES Eyes: PERRL/EOMI, pink conjunctivae - HEAD, EARS, NOSE, MOUTH & THROAT HENMT: normocephalic/atraumatic. negative: moist mucous membranes (dry muc mem) - NECK Neck: non-tender, full range of motion, supple - RESPIRATORY Respiratory: chest non-tender, lungs clear, normal breath sounds - CARDIOVASCULAR Cardiovascular: normal peripheral pulses, extra beats, irregularly irregular. negative: regular rate, rhythm - GASTROINTESTINAL (ABDOMEN) Abdominal Exam: normal bowel sounds, non tender, soft - LYMPHATIC Lymphatic: no adenopathy - MUSCULOSKELETAL Back Exam: normal inspection, no CVA tenderness, no vertebral tenderness Extremity: normal range of motion, non-tender, normal inspection Peripheral Pulses: radial (R): 2+, radial (L): 2+ - SKIN Integumentary: normal turgor, warm/dry, pallor. negative: normal color, abrasion(s), embolic lesions, mottled - NEUROLOGIC Neurologic: no motor/sensory deficits - PSYCHIATRIC Psych/Mental Status: normal mood/affect, normal thought content, normal thought process, oriented x 3, other (pt nonverbal) Progress - PLAN OF CARE/RESULTS Progress/Plan/Lab Results: Orders Category Date Time Status OK to use Port-A-Cath ORDERED Care 07/06/19 17:00 Active CBC WITH ELECTRONIC DIFF [HEME] Stat Lab 07/06/19 17:34 Results COMPREHENSIVE METABOLIC PANEL [CHEM] Stat Lab 07/06/19 17:34 Received Stool [C DIFF TOXIN] [STOOL] Stat Lab 07/06/19 15:56 Uncollected UA NIMS W/REFLEX CULT [URINALYSIS] Stat Lab 07/06/19 15:56 Uncollected EKG [EKG] Stat Ther 07/06/19 16:44 Ordered Result Diagrams: 07/06/19 17:34 07/06/19 17:34 - CONSULTS/PCP/HOSPITALIST Notification #1 *Consult/PCP/Hospitalist*: WILLI Stahl Time Discussed: 18:37 Reason/Comments: possible C-diff, Hypokalemia, Hypocalcemia, Anemia Departure - Departure Date of Disposition Decision: 07/06/19 Time of Disposition Decision: 18:38 DIAGNOSIS: Anemia, C. difficile enteritis, Acute hypokalemia Disposition: ADMITTED INPATIENT 09 Certified Medical Emergency: Emergent Condition: Critical Additional Freetext Instructions: ED Follow Up Instructions: You have been treated by a care provider in the Emergency Department. These inst ructions are being provided to you so you can have an understanding of how to care for yourself upon discharge. Upon discharge from the Emergency Department, you are responsible for making arrangements for follow-up care by a physician of your choice. Take all prescribed medications as directed. Return to the Emergency Department immediately for any new or worsening symptoms. You may call the Physician Referral phone number at [phone] to obtain a list of Physicians who are taking new patients. Referrals and Follow-Ups: None,PCP [Primary Care Provider] - - Critical Care Note This patient required my direct & personal management of CC.: No Attestation - Physician/ GLORIA Attestation Patient care was provided by Advanced Practice Provider:: No Advanced Practice Provider:: Олег Mccormick The physician spent face to face time with patient:: No Advanced Practice Provider documentation review:: Supervising physician onsite and consulted in the evaluation and care of this patient. The physician did not have a face to face encounter with the patient. This chart was documented by the indicated scribe, (Gayla Pond Scribe) and accurately reflects the services I performed and decisions made by me, Олег Mccormick CRNP, as attested by the provider's signature.
--- NOTE | 2019-07-06 19:30 | EKG Report ---
Test Performed on : 07/06/2019 6:56:22 PM Test Reason : CP Blood Pressure : / mmHG Vent. Rate : 103 BPM Atrial Rate : 082 BPM P-R Int : 000 ms QRS Dur : 086 ms QT Int : 336 ms P-R-T Axes : 000 -14 052 degrees QTc Int : 440 ms Atrial fibrillation. with rapid ventricular response. Abnormal ECG When compared with ECG of 06-OCT-2012 13:16, Atrial fibrillation. has replaced Sinus rhythm. Incomplete right bundle branch block is no longer present T wave amplitude has decreased in Inferior leads Nonspecific T wave abnormality now evident in Lateral leads Unconfirmed Result
[2019-07-06 20:20] LABS: RETIC% 4.53 % (0.8-2.1); RETIC-HE 36.7 PG (28.2-36.6)
[2019-07-06 20:25] LABS: MAGNESIUM 1.8 mg/dL (1.5-2.7); PHOSPHORUS 2.8 mg/dL (2.7-4.5)
--- NOTE | 2019-07-06 20:55 | HISTORY AND PHYSICAL ---
PRIMARY CARE PHYSICIAN: Not listed. PRIMARY ONCOLOGIST: Sanchez Torres MD HISTORY OF PRESENT ILLNESS: Clementine Heck is an 83-year-old, woman with past medical history of CLL and anemia of chronic inflammation. She also has history of dementia. She comes in today because of a two-day history of loose stools, worse today. Yesterday started with 2 loose stools, nonbloody, and today she has had about 5 loose stools, nonbloody, non-melenic. The patient is an extremely poor historian because she has a moderate degree of dementia, and she is very reticent so most of the history obtained was from her caregiver at bedside. Patient was recently treated for C difficile infection over a week ago and had a 7 to 10-day course of 125 mg of vancomycin, which she completed. Reportedly doing well up until today. The patient and her caregiver both deny abdominal pain. The patient's caregiver also denies any nausea or vomiting. No documented fever. The patient was told to go to the ER at the behest of her home health nurse. Otherwise rest of the history could not be obtained. When I asked her any questions, she shook her head and denied any other complaints i.e. genitourinary complaints, neurological complaints, cough, fever or chills. REVIEW OF SYSTEMS: Somewhat limited due to patient's reticence and cognitive limitations. Positive findings as noted above. ALLERGIES: To terbinafine hydrochloride and lidocaine and adhesives. HOME MEDICATIONS: Have not been reconciled at this time. SOCIAL HISTORY: Lives at home with 24-hour caregivers. No history of smoking, drinking or use of illicit drugs. SURGICAL HISTORY: Med port placed, hysterectomy and bladder tack. FAMILY HISTORY: I would take this with some limitations. According to the patient, nobody with cancer, diabetes or heart disease. LABORATORY WORK: White count 9000, H and H 7.5 and 24, platelets 203,000 with normal white cell differential. Potassium is 2.8. BUN is 12, creatinine 0.5, glucose 134. Calcium is 7.5, but corrected around 7.8. Stool specimen Clostridium difficile toxin, and these are pending and probably will be positive to begin with. PHYSICAL EXAMINATION: VITAL SIGNS: Blood pressure 153/94, heart rate is 95, respirations 24, temperature is 99.8. She has a 96% O2 saturation. GENERAL: She is an elderly woman who has a flat affect. Mood appears to be normal. She is not anxious. She is alert and oriented to person and place. HEENT: Head is normocephalic, atraumatic. Eyes: PERRL, EOMI. She is anicteric and pale. ENT and oropharynx exam just showed mild xerostomia but no oropharyngeal exudates or erythema. No central cyanosis noted. NECK: Supple. No JVD or carotid bruit. No thyromegaly. CHEST: The patient does have a few left basilar crepitations but no wheezes. Good air entry in both lung ugarte. CARDIOVASCULAR SYSTEM: First and second heart sounds are heard. There is a 3/6 ejection systolic murmur in the aortic area radiating to the neck. No gallops appreciated. Rhythm is irregular. The patient's distal pulses have good volume. They are symmetrical but irregular. ABDOMEN: Slightly protuberant. It is soft to touch. There are no focal areas of tenderness. No masses or megaly noted. Bowel sounds are surprisingly hypoactive. RECTAL EXAM: Deferred at this time. EXTREMITIES: Patient has no edema. No clubbing. No peripheral cyanosis. NEUROLOGICAL SYSTEM: No gross focal deficits. No tremors. SKIN: Intact with slightly decreased turgor but no areas of breakdown or erythema. No rash. MUSCULOSKELETAL EXAM: Patient has no gross joint deformities and musculature appears to be normal. ASSESSMENT: 1. Acute diarrhea very likely to be Clostridium difficile infection relapse. 2. Mild dehydration. 3. Hypokalemia. 4. Chronic lymphocytic leukemia. 5. Microcytic anemia. 6. Dementia. PLAN: 1. The patient will be started on Dificid for now. I will defer to primary team if they decide they want to switch to another course of vancomycin and then repeat again in a few days. If patient fails either repeat vancomycin treatment or Dificid treatment, fecal transplant may be the next option. Due to the fact the patient has CLL, she probably has deficient immunoglobulins, and IVIG may be useful here based on the small observation studies. 2. Patient has microcytic anemia. We will do anemia workup and follow. If the patient's hematocrit and/or hemoglobin drops any further, a unit of blood may be beneficial; however, I will defer to Dr. Torres on that matter. 3. Dementia. For now, nothing active to be done. 4. Hypokalemia. Currently being repleted. Await magnesium level and replete if needed. cc: MD Sanchez Trinh MD MTDD
[2019-07-06] MEDS ORDERED: ULTRAM PO PRN (23:01)
[2019-07-06] MEDS ORDERED: ZOFRAN IV PRN (23:01)
[2019-07-07] MEDS: QUESTRAN PO SCH ×5 (00:25→21:02)
[2019-07-07 01:15] LABS: URINE SOURCE CLEAN CATCH
[2019-07-07 01:20] LABS: BILIRUBIN URINE NEGATIVE (NEGATIVE); BLOOD URINE SMALL (NEGATIVE); COLOR YELLOW; GLUCOSE URINE NEGATIVE (NEGATIVE); KETONE URINE NEGATIVE (NEGATIVE); PROTEIN URINE 30 mg/dL (NEGATIVE); SP GRAVITY URINE 1.017; TURBIDITY URINE HAZY (CLEAR)
[2019-07-07 01:21] LABS: LEUKOCYTES URINE LARGE (NEGATIVE); NITRITE URINE POSITIVE (NEGATIVE); UROBILINOGEN URINE NORMAL (NORMAL)
[2019-07-07 01:22] LABS: UR EPITHELIAL CELLS <10 /HPF (<10); URINE BACTERIA NEGATIVE /HPF; URINE RBC <10 /HPF (<10); URINE WBC TNTC /HPF (<10)
[2019-07-07] MEDS: DIFICID PO SCH ×2 (06:40→15:26)
[2019-07-07] MEDS: TYLENOL PO PRN (06:44)
[2019-07-07 07:59] LABS: BASO# 0.02 X1000 (0.0-0.2); BASO% 0.2 % (0.0-0.8); EOS# 0.01 X1000 (0.0-0.7); EOS% 0.1 % (0.0-10.0); HEMATOCRIT 22.6 % (37.0-47.0); HEMOGLOBIN 6.9 g/dL (12.0-16.0); LYMPH# 4.67 X1000 (1.2-3.4); LYMPH% 50.5 % (20.5-51.1); MCH 36.3 PG (27-31); MCHC 30.5 g/dL (33-37); MCV 118.9 FL (81-99); MONO# 0.74 X1000 (0.11-0.59); MPV 10.7 FL (7.4-10.4); NEUT# 3.81 X1000 (1.4-6.5); NEUT% 41.2 % (42.2-75.2); PLT 192 X1000 (130-400); WBC 9.25 X1000 (4.8-10.8)
[2019-07-07] MEDS ORDERED: NS 500 ML IV ONE (10:48)
[2019-07-07 11:24] LABS: TSH 1.74 uIUmL (0.27-4.20)
[2019-07-07 12:47] LABS: AGAP 10; BUN 11 mg/dL (8-22); CALCIUM 7.6 mg/dL (8.8-10.2); CHLORIDE 107 mmol/L (98-107); COSMO 285; CREATININE 0.4 mg/dL (0.5-0.9); ESTIMATED GFR > 60; GLUCOSE 109 mg/dL (70-104); MAGNESIUM 1.7 mg/dL (1.5-2.7); POTASSIUM 2.7 mmol/L (3.5-5.1); SODIUM 143 mmol/L (136-145); TCO2 26 mmol/L (25-35)
--- NOTE | 2019-07-07 15:11 | PROGRESS NOTE ---
DATE: 07/07/2019 SUBJECTIVE: The patient reports feeling fine although still having diarrhea. OBJECTIVE: Vital Signs: Temperature 101.1 degrees, heart rate 99, respiratory rate 18, blood pressure 159/55, O2 saturation 100% on 2 L nasal cannula. General: This is a chronically ill- appearing 83-year-old female lying in bed in no acute distress. Cardiovascular: S1, S2 heard. No murmurs, gallops or rubs. Regular rate and rhythm. Respiratory: Clear bilaterally to auscultation. Not using any accessory muscles. Abdomen: Soft and nontender to palpation. Bowel sounds present. No organomegaly. Extremities: No clubbing, cyanosis or edema. Peripheral pulses present in both legs. Neurologic: The patient is alert and oriented x3. Moves all 4 extremities. LABORATORY DATA: Reviewed. ASSESSMENT: 1. Acute diarrhea secondary to Clostridium difficile. 2. Hypokalemia. 3. Chronic lymphocytic leukemia. 4. Microcytic anemia. 5. Dementia. PLAN: At this point we will continue with PCP. We will continue with IV fluids. Because the hemoglobin 6.9 I decided to transfuse 1 unit of blood. We will check CBC tomorrow. Regarding chronic lymphocytic leukemia, Dr. Torres has been consulted for microcytic anemia as well. We will continue to monitor this patient closely. cc: Jono Rios MD [facility]
[2019-07-08] MEDS: DIFICID PO SCH ×2 (06:58→20:45)
[2019-07-08 09:12] LABS: BASO# 0.01 X1000 (0.0-0.2); BASO% 0.2 % (0.0-0.8); EOS# 0.03 X1000 (0.0-0.7); EOS% 0.7 % (0.0-10.0); HEMATOCRIT 24.2 % (37.0-47.0); HEMOGLOBIN 7.7 g/dL (12.0-16.0); LYMPH# 1.85 X1000 (1.2-3.4); LYMPH% 43.5 % (20.5-51.1); MCH 34.2 PG (27-31); MCHC 31.8 g/dL (33-37); MCV 107.6 FL (81-99); MONO# 0.31 X1000 (0.11-0.59); MONO% 7.3 % (1.7-9.3); MPV 11.1 FL (7.4-10.4); NEUT# 2.05 X1000 (1.4-6.5); NEUT% 48.3 % (42.2-75.2); RBC 2.25 XMIL (4.2-5.4); WBC 4.25 X1000 (4.8-10.8)
[2019-07-08 09:46] LABS: ANISOCYTOSIS 2+; BANDS 2 % (0-1); EOS 1 % (1-10); LARGE PLATELETS OCCASIONAL; LYMPHS 41 % (21-51); MONO 6 % (1-9); POLYCHROM 1+; SEGS 50 % (42-75)
[2019-07-08 09:47] LABS: PLT 101 X1000 (130-400)
[2019-07-08] MEDS: QUESTRAN PO SCH ×4 (11:03→20:45)
[2019-07-08] MEDS ORDERED: ULTRAM PO PRN (11:38)
[2019-07-08] MEDS ORDERED: TUMS PO PRN (11:38)
[2019-07-08 13:06] LABS: AGAP 10; BUN 7 mg/dL (8-22); CALCIUM 7.6 mg/dL (8.8-10.2); CHLORIDE 109 mmol/L (98-107); COSMO 285; CREATININE 0.5 mg/dL (0.5-0.9); ESTIMATED GFR > 60; GLUCOSE 100 mg/dL (70-104); SODIUM 144 mmol/L (136-145); TCO2 25 mmol/L (25-35)
[2019-07-08 13:10] LABS: POTASSIUM 2.4 mmol/L (3.5-5.1)
[2019-07-08] MEDS: KLOR-CON PO SCH ×2 (15:14→17:42)
[2019-07-08] MEDS: THERA M PLUS PO SCH (15:14)
[2019-07-08] MEDS: FOLIC ACID PO SCH (15:14)
[2019-07-08] MEDS: POTASSIUM CHLORIDE 20 MEQ/SWI 20 MEQ/100 ML IVPB IV SCH ×2 (15:15→17:41)
--- NOTE | 2019-07-08 16:49 | PROGRESS NOTE ---
DATE: 07/08/2019 INTERVAL HISTORY: No acute events overnight. Her blood count did increase appropriately after 1 unit of blood transfusion. She has been saturating 100% 3.5 L nasal cannula. Her potassium is still low which is currently being repleted. She had 1 bowel movement in the morning time which was liquidy. SUBJECTIVE: Patient denies any chest pain, shortness of breath. She has been able to eat a liquid diet without any difficulty. She denies any chest pain or shortness of breath. Caregiver is at bedside. She denies any nausea, vomiting or abdominal pain. PHYSICAL EXAMINATION: Oral cavity is moist. Air entry bilateral equal. No wheeze, rhonchi, crackles. S1, S2 irregularly irregular. No murmur or gallop.Abdomen: Soft, nontender. Active bowel sounds. No lower extremity edema. She is alert, she is answering all questions appropriately but appears very weak to me. LABS: Suggestive of macrocytic anemia, mild thrombocytopenia, profound hypokalemia. Microbiology, urine culture did not have any growth till date. ASSESSMENT AND PLAN: 1. Acute recurrent Clostridium difficile colitis. Continue oral fidaxomicin for total of 10 days and avoid antibiotics. Her diarrhea has been improving. 2. Hypokalemia likely because of Clostridium difficile colitis. Replete with oral and IV potassium. 3. Others. Continue home venlafaxine, folic acid with multivitamin for chronic anemia, she is status post 1 unit packed red blood cells. 4. Disposition. I will have physical therapy evaluate the patient since she appears very weak. Based on that my plan will be to consider discharge in next 24 to 48 hours to home where she has 24 hours caregiver versus considering rehab. Plan of care discussed with her. Her questions have been answered. cc: Esteban Rainey MD
--- NOTE | 2019-07-08 19:35 | EKG Report ---
Test Performed on : 07/08/2019 4:14:43 PM Test Reason : Follow up heart rhythm Blood Pressure : / mmHG Vent. Rate : 103 BPM Atrial Rate : 098 BPM P-R Int : 000 ms QRS Dur : 090 ms QT Int : 348 ms P-R-T Axes : 000 -11 051 degrees QTc Int : 455 ms Atrial fibrillation. with rapid ventricular response. Abnormal ECG When compared with ECG of 06-JUL-2019 18:56, (Unconfirmed) No significant change was found Confirmed by Yosi ONEIL, Shawn Arce ([id number]) on 07/09/2019 8:30:05 AM
[2019-07-08] MEDS ORDERED: DIFICID PO SCH (20:00)
[2019-07-08] MEDS: EFFEXOR XR PO SCH (20:45)
[2019-07-08] MEDS: TYLENOL PO PRN (20:45)
[2019-07-09] MEDS: DIFICID PO SCH ×2 (08:16→21:11)
[2019-07-09] MEDS: QUESTRAN PO SCH ×4 (10:38→21:11)
[2019-07-09] MEDS: FOLIC ACID PO SCH (10:39)
[2019-07-09] MEDS: THERA M PLUS PO SCH (10:39)
[2019-07-09] MEDS: VITAMIN B-12 PO SCH (10:39)
[2019-07-09] MEDS ORDERED: KLOR-CON PO SCH (16:00)
[2019-07-09] MEDS ORDERED: MAGNESIUM SULFATE 2 GM/S.W.I. 2 GM/50 ML IVPB IV ONE (16:00)
[2019-07-09] MEDS ORDERED: POTASSIUM CHLORIDE 20% LIQUID PO SCH (17:15)
--- NOTE | 2019-07-09 17:18 | PROGRESS NOTE ---
DATE: 07/09/2019 INTERVAL HISTORY: No acute event overnight. She had a good meal. She also had an episode of fever. The patient's daughter is on the phone and the second daughter is at bedside. I discussed with them about exam findings. I also discussed with them about atrial fibrillation. After understanding the risks versus benefits, they decided not to start her on anticoagulation considering her overall poor functional status. Currently, the patient is in bed, not in acute distress. VITAL SIGNS: Temperature 98.5 degrees. However, she did have a temperature of 101.4 degrees yesterday evening. Pulse of 71, respiratory rate 18, blood pressure 160/89, saturating 100% on room air. PHYSICAL EXAMINATION: General: Does not appear in any acute distress. HEENT: Oral cavity is moist. Lungs: Air entry bilaterally equal. No wheeze or rhonchi. Mild inspiratory crackles. Cardiovascular: S1, S2 normal. Irregularly irregular. No murmur, rub, or gallop. Abdomen: Soft, nontender. Active bowel sounds. Extremities: No lower extremity edema. LABS: No CBC today. BMP suggestive of a potassium of 3.6. MICROBIOLOGY: No positive data. IMAGING: No new imaging. ASSESSMENT AND PLAN: 1. Acute recurrent Clostridium difficile colitis. Continue oral fidaxomicin for a total of 10 days and avoid unnecessary other antibiotics. Her diarrhea has been improving. Her oral intake has improved. 2. Hypokalemia, hypomagnesemia. Currently being repleted. I will follow up with electrolytes tomorrow. 3. History of T-cell large granular lymphocytic leukemia, on methotrexate and prednisone. Her CT scan of the chest in June 2019 had stable disease. Her treatment is on hold. 4. Anemia, likely because of bone marrow suppression in the setting of leukemia, status post 1 unit of packed red blood cells. Continue folic acid, multivitamin. She is status post 1 unit of PRBC. Oncologist team will be consulted tomorrow morning to see if she will need intravenous iron therapy while inside the hospital. 5. Others. Continue calcium carbonate for hypocalcemia, venlafaxine for anxiety, folic acid for anemia with multivitamin. 6. Disposition. I am awaiting repeat CBC and BMP tomorrow. If her electrolytes are within acceptable range and the patient clinically looks better without any fever spike, my plan will be to discharge her home and resume home PT and home OT. Plan of care discussed with the patient's daughters at bedside and on the phone. The patient also has atrial fibrillation, though her rate is well controlled. The patient's daughters decided to hold anticoagulation until her C. difficile resolves and would like to hold discussion with her routine outpatient doctors. cc: Esteban Rainey MD MTDD
[2019-07-09] MEDS ORDERED: PREDNISONE PO SCH (21:00)
[2019-07-09] MEDS: EFFEXOR XR PO SCH (21:11)
[2019-07-09] MEDS: POTASSIUM CHLORIDE 20 MEQ/SWI 20 MEQ/100 ML IVPB IV SCH ×2 (21:15→23:19)
[2019-07-10 01:11] LABS: AGAP 8; ALB/GLOB RATIO 1.6; ALBUMIN 2.9 g/dL (3.5-5.0); ALKALINE PHOSPHATASE 55 U/L (32-104); BUN 7 mg/dL (8-22); CALCIUM 7.6 mg/dL (8.8-10.2); CHLORIDE 106 mmol/L (98-107); CK TOTAL 40 U/L (24-173); COSMO 269; CREATININE 0.5 mg/dL (0.5-0.9); ESTIMATED GFR > 60; GLUCOSE 117 mg/dL (70-104); GOT 13 U/L (10-30); GPT 14 U/L (10-36); POTASSIUM 3.8 mmol/L (3.5-5.1); SODIUM 135 mmol/L (136-145); TCO2 21 mmol/L (25-35); TOTAL BILIRUBIN 0.74 mg/dL (0.20-1.00); TOTAL PROTEIN 4.7 g/dL (6.3-8.3)
[2019-07-10 01:15] LABS: INR 1.36
[2019-07-10 01:16] LABS: PTT 36.8 Seconds (22.3-41.8)
[2019-07-10 01:18] LABS: BASO# 0.02 X1000 (0.0-0.2); BASO% 0.2 % (0.0-0.8); EOS# 0.05 X1000 (0.0-0.7); EOS% 0.6 % (0.0-10.0); HEMATOCRIT 25.8 % (37.0-47.0); HEMOGLOBIN 8.3 g/dL (12.0-16.0); IMM GRAN# 0.03 X1000 (0.0-0.04); IMM GRAN% 0.3 % (0.0-0.5); LYMPH# 4.19 X1000 (1.2-3.4); LYMPH% 46.4 % (20.5-51.1); MCH 34.9 PG (27-31); MCHC 32.2 g/dL (33-37); MCV 108.4 FL (81-99); MONO# 0.54 X1000 (0.11-0.59); MPV 10.2 FL (7.4-10.4); NEUT% 46.5 % (42.2-75.2); PLT 185 X1000 (130-400); RBC 2.38 XMIL (4.2-5.4); WBC 9.03 X1000 (4.8-10.8)
[2019-07-10] MEDS ORDERED: TYLENOL PR PRN (02:45)
--- NOTE | 2019-07-10 06:22 | Diag Imaging Result Doc PS360 ---
CHEST-1 VIEW - 07/09/2019 INDICATION: sepsis protocol COMPARISON: 06/08/2019 FINDINGS: Stable right chest port in good position. Stable bilateral upper lobe fibrosis. Stable minimal linear scarring in the right lung base. Stable calcified granuloma in the left lung base. No infiltrates or edema. Heart size is borderline enlarged. No significant pleural effusion. IMPRESSION: No change from prior. Electronically signed by Peter Segovia 07/10/2019 6:20 AM
[2019-07-10 07:19] LABS: BASO# 0.02 X1000 (0.0-0.2); BASO% 0.2 % (0.0-0.8); EOS# 0.06 X1000 (0.0-0.7); EOS% 0.7 % (0.0-10.0); HEMATOCRIT 25.4 % (37.0-47.0); HEMOGLOBIN 8.1 g/dL (12.0-16.0); IMM GRAN# 0.03 X1000 (0.0-0.04); IMM GRAN% 0.4 % (0.0-0.5); LYMPH# 3.43 X1000 (1.2-3.4); LYMPH% 42.8 % (20.5-51.1); MCH 34.3 PG (27-31); MCHC 31.9 g/dL (33-37); MCV 107.6 FL (81-99); MONO# 0.58 X1000 (0.11-0.59); MONO% 7.2 % (1.7-9.3); MPV 10.2 FL (7.4-10.4); NEUT% 48.7 % (42.2-75.2); PLT 188 X1000 (130-400); RBC 2.36 XMIL (4.2-5.4); WBC 8.02 X1000 (4.8-10.8)
[2019-07-10 07:36] LABS: AGAP 8; BUN 8 mg/dL (8-22); CALCIUM 7.2 mg/dL (8.8-10.2); CHLORIDE 108 mmol/L (98-107); COSMO 273; CREATININE 0.5 mg/dL (0.5-0.9); ESTIMATED GFR > 60; GLUCOSE 110 mg/dL (70-104); MAGNESIUM 2.2 mg/dL (1.5-2.7); POTASSIUM 3.7 mmol/L (3.5-5.1); SODIUM 137 mmol/L (136-145); TCO2 21 mmol/L (25-35)
[2019-07-10] MEDS: VITAMIN B-12 PO SCH (08:28)
[2019-07-10] MEDS: DIFICID PO SCH ×2 (08:29→21:21)
[2019-07-10] MEDS: QUESTRAN PO SCH ×4 (08:29→21:22)
[2019-07-10] MEDS: THERA M PLUS PO SCH (08:29)
[2019-07-10] MEDS: FOLIC ACID PO SCH (08:29)
[2019-07-10] MEDS: LR 1,000 ML IV SCH (09:22)
--- NOTE | 2019-07-10 09:58 | Diag Imaging Result Doc PS360 ---
EXAM: CT ABDOMEN/PELVIS W/O CONTRAST INDICATION: Evaluate for toxic megacolon/intra-abdominal abscess TECHNIQUE: This exam was performed using automated exposure control, adjustment of mA or kV according to patient size, and/or use of iterative reconstruction technique. COMPARISON: 02/06/2016 FINDINGS: There is mild subsegmental atelectasis at the lung bases. There is a small pericardial effusion. The gallbladder is contracted. There is a small left hepatic lobe cyst. The liver is unremarkable, otherwise. The pancreas is somewhat atrophic but unremarkable, otherwise. The spleen and adrenal glands are unremarkable. There are several renal cysts bilaterally that are also seen on the previous study. There is no hydronephrosis. The urinary bladder is partially distended. 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 There appears to be vague increased density layering in the diverticulum, likely layering proteinaceous debris. There is a to moderate-sized hiatal hernia. There is layering liquid stool in the transverse colon and more formed stool in the distal sigmoid colon and rectum. The colon is not abnormally distended. There is no evidence of toxic megacolon. No focal bowel wall thickening can be identified and there is no obstructive bowel pattern. The remainder of the GI tract is essentially unremarkable. There is multilevel spondylosis and prominent scoliosis. There is no evidence of acute osseous abnormality. IMPRESSION: 1.Liquid stool in much of the colon suggesting possible diarrheal illness. There is no evidence of toxic megacolon. 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 Please correlate clinically. 3.Other incidental/nonacute findings detailed above. Electronically signed by Abimael Pond 07/10/2019 9:55 AM
[2019-07-10 10:46] LABS: BANDS 2 % (0-1); LYMPHS 44 % (21-51); MONO 4 % (1-9); SEGS 50 % (42-75)
[2019-07-10] MEDS: VENOFER 200 MG in NS 100 ML IV SCH (11:54)
[2019-07-10] MEDS ORDERED: TYLENOL PO PRN (12:48)
[2019-07-10 12:53] LABS: URINE SOURCE CATH
[2019-07-10 12:54] LABS: URINE RBC 20-40 /HPF (<10); URINE WBC TNTC /HPF (<10)
[2019-07-10 12:55] LABS: BILIRUBIN URINE NEGATIVE (NEGATIVE); COLOR STRAW; GLUCOSE URINE NEGATIVE (NEGATIVE); KETONE URINE NEGATIVE (NEGATIVE); TURBIDITY URINE TURBID (CLEAR); UR EPITHELIAL CELLS >10 /HPF (<10); URINE BACTERIA 4+ /HPF
[2019-07-10 12:56] LABS: BLOOD URINE MODERATE (NEGATIVE); LEUKOCYTES URINE LARGE (NEGATIVE); NITRITE URINE POSITIVE (NEGATIVE); PH URINE 6.5; PROTEIN URINE 200 mg/dL (NEGATIVE); SP GRAVITY URINE 1.009; UROBILINOGEN URINE NORMAL (NORMAL)
[2019-07-10 12:58] LABS: URINE CASTS NONE SEEN; URINE YEAST NONE SEEN
[2019-07-10] MEDS: ROCEPHIN 1 GM in NS 50 ML IV SCH (15:16)
--- NOTE | 2019-07-10 20:28 | PROGRESS NOTE ---
DATE: 07/10/2019 INTERVAL HISTORY: She did develop episodes of fever overnight where her temperature was 103.7 degrees in the morning time. Also, she had 100.3 temperature. She has been intermittently tachycardic on bedside monitor with heart rate fluctuating between 80s to 100. SUBJECTIVE: She is denying any new complaints. She appears hot to touch. She also has dementia, and she is not contributing to the history meaningfully. Patient's daughter is at bedside. OBJECTIVE: Vital signs: Currently temperature 98.5 degrees, pulse 81, respiratory rate 18, blood pressure 160/70. She is saturating 99% on nasal cannula. General: Appears sick. The oral cavity is dry. Mild distress because of fever. Lungs: Air entry bilaterally equal. No wheeze, rhonchi. Mild inspiratory crackles. Cardiovascular: S1, S2 normal. Irregularly irregular. No murmur, rub or gallop. Abdomen: Soft, nontender. Active bowel sounds. Extremities: No lower extremity edema. She is alert. She is oriented to herself but does not contribute to history meaningfully. She has been bed- bound since hospital admission. LABORATORY DATA: Suggestive of macrocytic anemia. Normal platelet count. Normal kidney function. MICROBIOLOGY: Blood culture and urine culture have been ordered, which are in lab. IMAGING: Abdomen and pelvis CT has been performed, which has liquid stools, stable bladder diverticulum with vague layering hyperdense material within the lumen suggesting proteinaceous debris or blood products. ASSESSMENT AND PLAN: 1. Sepsis. Differential at the moment includes persistent Clostridium difficile colitis versus urosepsis. Follow up urine culture and blood culture. Start patient on intravenous ceftriaxone. Continue fidaxomicin. CT scan of the abdomen and pelvis did not detect any toxic megacolon. Start patient on gentle intravenous fluid resuscitation with lactated Ringer's. 2. Acute recurrent Clostridium difficile colitis. Continue oral fidaxomicin for a total of 10 days. In future, I may consider starting her on intravenous metronidazole in addition or oral vancomycin in addition. 3. 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 In June 2019, she had stable disease. Her treatment has been currently held. Her anemia is likely because of bone marrow involvement because of leukemia. She is status post 1 unit of packed red blood cells. I will continue folic acid, multivitamin treatment. Oncology team was notified if the patient would need intravenous iron therapy. 4. Others: Continue calcium carbonate for hypocalcemia; venlafaxine for anxiety. DISPOSITION: Continue to monitor patient inside the hospital for ongoing sepsis. Physical therapy has been ordered. Plan of care discussed extensively with the patient and daughter at bedside who is a surrogate decision maker. All of her questions have been answered. cc: Esteban Rainey MD
[2019-07-10] MEDS: EFFEXOR XR PO SCH (21:21)
[2019-07-11] MEDS: LR 1,000 ML IV SCH ×2 (00:48→16:38)
[2019-07-11] MEDS: VITAMIN B-12 PO SCH (09:45)
[2019-07-11] MEDS: THERA M PLUS PO SCH (09:45)
[2019-07-11] MEDS: VENOFER 200 MG in NS 100 ML IV SCH (09:45)
[2019-07-11] MEDS: QUESTRAN PO SCH ×4 (09:45→20:59)
[2019-07-11] MEDS: DIFICID PO SCH ×2 (09:46→20:59)
[2019-07-11] MEDS: FOLIC ACID PO SCH (09:46)
[2019-07-11] MEDS: ROCEPHIN 1 GM in NS 50 ML IV SCH (13:42)
[2019-07-11] MEDS: EFFEXOR XR PO SCH (20:59)
[2019-07-11] MEDS: ELIQUIS PO SCH (21:02)
[2019-07-12] MEDS: DIFICID PO SCH (09:16)
[2019-07-12] MEDS: QUESTRAN PO SCH ×2 (09:16→14:29)
[2019-07-12] MEDS: ELIQUIS PO SCH (09:16)
[2019-07-12] MEDS: VITAMIN B-12 PO SCH (09:16)
[2019-07-12] MEDS: THERA M PLUS PO SCH (09:16)
[2019-07-12] MEDS: FOLIC ACID PO SCH (09:16)
[2019-07-12] MEDS: VENOFER 200 MG in NS 100 ML IV SCH (09:24)
[2019-07-12] MEDS ORDERED: LEVAQUIN PO SCH (09:45)
[2019-07-12 11:49] VITALS: BP 127/53
[2019-07-12] MEDS: LR 1,000 ML IV SCH (14:32)
--- NOTE | 2019-07-13 06:06 | DISCHARGE SUMMARY ---
ADMISSION DATE: 07/06/2019 DISCHARGE DATE: 07/12/2019 DISCHARGE DISPOSITION: Home with 24 hour caregiver. DISCHARGE CONDITION: Hemodynamically stable. She has not had major fever spikes in 24 hours though there was one episode of temperature of 100.1 degrees just recently. The patient clinically has improved significantly and has adequate oral intake. DISCHARGE DIAGNOSES: 1. Sepsis due to urinary tract infection due to Klebsiella pneumoniae and Citrobacter youngae. 2. Recurrent C. Difficile colitis. 3. 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 4. Hypokalemia. OTHER DIAGNOSES: 1. History of dementia. 2. History of chronic pain. 3. New onset paroxysmal atrial fibrillation during this admission. 4. 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 CONSULTATIONS DURING HOSPITAL ADMISSION: Dr. Torres Hematology/Oncology. DISCHARGE MEDICATIONS: 1. Tramadol 50 mg at nighttime and 50 mg in the morning time as needed for pain. 2. Venlafaxine 37.5 mg at nighttime. 3. Folic Acid 1 mg daily. 4. Dronabinol 5 mg b.i.d. 5. Calcium carbonate 500 mg b.i.d. 6. Hydrocodone Tussionex Liquid 5 mL p.o. as needed for cough. 7. Vitamin B12 50 mcg daily. 8. Vitamin D3 50 mcg daily. 9. Lactobacillus 1 tablet b.i.d. for 30 days. 10. Apixaban 2.5 mg b.i.d. 11. Levofloxacin 500 mg daily 7 tablets have been prescribed. 12. Acetaminophen 650 mg every 4 hours as needed for pain. 13. Tramadol. VITAL AT TIME OF DISCHARGE: Temperature 100.1, pulse 79, respiratory 17, blood pressure 128/58 and saturating 100% on 3 L nasal cannula. PHYSICAL EXAMINATION: General: Does not appear in any acute distress. HEENT: Oral cavity is dry. Lungs: Air entry bilaterally equal. No wheeze or crackles. Heart: Normal. No murmur or gallop. Abdomen: Soft and nontender. Active bowel sounds. She is stated to have one bowel movement today, and 2 bowel movements yesterday which were formed. She is alert. She is following simple commands like raising both arms and legs above ground level. LABORATORY: Labs at time of discharge, WBC 8000, hemoglobin 8.1, platelet 188,000, potassium 3.7, magnesium 2.2, BUN 8, and creatinine 0.5. SIGNIFICANT MICROBIOLOGY DURING HOSPITAL ADMISSION: C. Difficile toxin assay was positive for C. Difficile toxin. Blood culture did not have any growth on 07/10. Urine culture was growing Klebsiella pneumoniae and Citrobacter, which were both sensitive to levofloxacin. SIGNIFICANT IMAGING DURING HOSPITAL ADMISSION: Chest x-ray on admission did not have acute pathology. There was a right chest port in good position. Stable bilateral upper lobe fibrosis. Stable linear scarring in the right lung base. Stable calcified granuloma on the left lung base without infiltrate or edema. Abdomen and pelvic CT had liquid stool in the colon suggestive of possible diarrheal illness. There was no evidence of toxic megacolon. There was stable bladder diverticulum posteriorly on the right with vagal layering material within the lumen suggestive of proteinaceous tablets or blood products. Cardiovascular: EKG had atrial fibrillation with rapid ventricular response on 07/08. Atrial fibrillation with rapid ventricular response was present. At the time of discharge on bedside monitor, she had normal sinus rhythm. HOSPITAL COURSE SUMMARY: Ms. Heck is an 83 year old lady with past medical history of CLL and anemia of chronic inflammation as well as dementia who came in with 2-day history of loose stools about 5 to 6 times a day, nonbloody, nonmelanotic. According to caregiver, she was recently treated for C. difficile infection with vancomycin of which she completed the course 7 days prior to presentation. She was doing okay after that until the last 2 days when she started having diarrhea again. She was found to be clinically volume depleted so was admitted for intravenous fluid resuscitation. With intravenous fluids, she was also started on oral fidaxomicin following which her diarrhea frequency had decreased. While inside the hospital, she kept on having spikes of fever with temperature as high as 103.7 degrees Fahrenheit so blood cultures and urine culture investigations were initiated where she was found to have Klebsiella and Citrobacter UTI. Her intravenous ceftriaxone was then changed to oral levofloxacin. She was discharged home. She also had developed atrial fibrillation with rapid ventricular rate with heart rate up to 100 beats per minute. It was thought to be related to her medical condition. A discussion was held with her daughter about risks and benefits of anticoagulation, and she had decided to start her on anticoagulation so she will be discharged on Eliquis adjusted for her age and weight. TIME SPENT: More than 30 minutes spent in discharging this patient. Plan of care discussed with the patient and caregiver at bedside yesterday. I had kept her daughter informed about plan of care, and answered all of her questions. cc: Esteban Rainey MD
== END 2019-07-12 14:58 | disposition home health service (06) | DRG 371 ==
LOC: ED 15:45 → SUATTDRO 20:35 → 3N 20:35
PROVIDERS: ATTEND Internal Medicine